=== PATIENT | female | born 1965 | race Caucasian/White ===

== ENCOUNTER → 2019-04-04 12:09 | Outpatient (CLI) | payer BC, SELFPAY ==
[2019-03-16 11:18] VITALS: BMI 25.3
== END ==
PROVIDERS: Family Provider Family Medicine; PCP Family Medicine; Referring Provider Internal Medicine Cardiovascular Disease; Visit Provider Internal Medicine Cardiovascular Disease
DX: R07.9 Chest pain, unspecified (principal)
CPT/HCPCS: 93017; 93350

== ENCOUNTER → 2019-12-14 | Outpatient (CLI) | payer BC, SELFPAY ==
[2019-12-14 12:37] VITALS: BMI 25.3
[2019-12-19 20:30] LABS: HPV APTIMA, High Risk Negative (Negative)
== END | disposition home or self-care (01) ==
LOC: LABSPEC 15:30
PROVIDERS: PCP Family Medicine; Referring Provider Nurse Practitioner Women's Health; Visit Provider Nurse Practitioner Women's Health
DX: Z12.4 Encounter for screening for malignant neoplasm of cervix (principal)
CPT/HCPCS: 87624; 88175; G0145

== ENCOUNTER → 2019-12-20 08:30 | Outpatient (CLI) | payer BC, SELFPAY ==
[2019-12-14 12:37] VITALS: BMI 25.3
--- NOTE | 2019-12-20 08:31 | BI_ITS ---
MAMMOGRAPHY - BILATERAL SCREENING REASON FOR EXAM: Female, 54 years old. Routine annual screening examination. PERTINENT HISTORY: Grandmother with breast cancer. TECHNIQUE: Digital bilateral breast shakeel (3D mammographic acquisition) in the CC and MLO projections. 2-D mediolateral oblique (MLO) and craniocaudad (CC) views of both breasts were obtained. CAD: Full Field Digital Mammography with Computer Added Detection was performed. COMPARISON: Comparison is made with prior operative examination dated September 20, 2018. FINDINGS: Breast Composition: There are scattered areas of fibroglandular density. There are no dominant masses or suspicious calcifications. Stable small benign-appearing bilateral axillary lymph nodes. No other significant abnormalities are identified. There has been no significant change since the prior study. BI/SCREEN MAMM (CAD) W/SHAKEEL BILAT IMPRESSION: Stable bilateral screening mammogram. Yearly follow-up mammogram recommended. (A) ASSESSMENT CATEGORY: BIRADS Category 2: Benign. A letter regarding these results will be sent to the patient by the facility within 30 days. Approximately 10% of breast cancers are not detected by mammography. A normal mammogram should not delay biopsy of a clinically suspicious abnormality. [id number] Electronically Signed: Jorge Hood, at 10:03 EST , Service support ,
== END ==
PROVIDERS: PCP Family Medicine; Referring Provider Nurse Practitioner Women's Health; Visit Provider Nurse Practitioner Women's Health
DX: Z12.31 Encounter for screening mammogram for malignant neoplasm of breast (principal)
CPT/HCPCS: 77063; 77067

== ENCOUNTER → 2022-02-17 | Outpatient (CLI) | payer BC, SELFPAY ==
[2022-02-17 12:19] LABS: Absolute Lymphocyte Count 2.97 X10^3/uL (0.83-4.51); Absolute Neutrophil Count 2.6 X10^3/uL (2.0-7.7); Basophil# 0.06 X10^3/uL; Basophil% 0.9 % (0-1); Eosinophil# 0.18 X10^3/uL; Eosinophils% 2.8 % (0-5); Hematocrit 37.9 % (37-47); Hemoglobin 12.7 g/dL (12.0-15.0); Lymphocyte # 2.97 X10^3/ul (0.83-4.51); Lymphocyte % 45.7 % (19-41); Mean Corp Hgb Conc 33.5 g/dL (32-36); Mean Corpuscular Hgb 31.2 pg (27.0-32.0); Mean Corpuscular Volume 93.1 fL (81-99); Mean Platelet Vol. 9.4 fl (6.2-12.0); Monocyte# 0.67 X10^3/uL; Monocyte% 10.3 % (0-10); NRBC Flagged by Analyzer 0 % (0-5); Platelet Count 347 K/mm3 (150-450); RBC Distribution Width CV 12.6 % (11.6-14.6); RBC Distribution Width SD 43.4 fl (35.1-43.9); Red Blood Count 4.07 M/mm3 (4.2-5.4); White Blood Count 6.5 K/mm3 (4.4-11.0)
[2022-02-17 12:58] LABS: AST(SGOT) 18 U/L (15-37); Alanine Aminotransfer ALT/SGPT 28 U/L (13-56); Albumin, Serum 3.6 g/dL (3.2-5.0); Alkaline Phosphatase 91 U/L (45-117); Anion Gap 6 (5-15); BUN 15 mg/dL (7-18); BUN/Creat Ratio 20.9 RATIO (10-20); Calcium,Total 9.3 mg/dL (8.5-10.1); Chloride 110 mmol/L (98-107); Cholesterol 172 mg/dL (200); Creatinine, Serum 0.72 mg/dL (0.55-1.02); EST Glomerular Filtration Rate 89 mL/min (>60); Est Glom Filt Rate - Afr Amer 107 mL/min (>60); Globulin 3.6 g/dL (2.2-4.2); Glucose 125 mg/dL (74-106); High Density Lipoprotein 57 mg/dL; Potassium 4.5 mmol/L (3.5-5.1); Protein, Total 7.2 g/dL (6.4-8.2); Sodium Level 141 mmol/L (136-145); Triglycerides 83 mg/dL; Very Low Density Lipoprotein 17 mg/dL (5-40)
== END | disposition home or self-care (01) ==
LOC: BIMLAB 08:30
PROVIDERS: PCP Internal Medicine; Referring Provider Internal Medicine; Visit Provider Internal Medicine
DX: Z00.00 Encounter for general adult medical examination without abnormal findings (principal)
CPT/HCPCS: 36415; 80053; 80061; 85025

== ENCOUNTER → 2022-02-26 | Outpatient (CLI) | payer BC, SELFPAY ==
--- NOTE | 2022-02-26 08:36 | BI_ITS ---
MAMMOGRAPHY - BILATERAL SCREENING REASON FOR EXAM: Female, 56 years old. Routine annual screening examination. PERTINENT HISTORY: Grandmother with breast cancer. TECHNIQUE: Digital bilateral breast shakeel (3D mammographic acquisition) in the CC and MLO projections. 2-D mediolateral oblique (MLO) and craniocaudad (CC) views of both breasts were obtained. CAD: Full Field Digital Mammography with Computer Added Detection was performed. COMPARISON: Comparison is made with prior study dated 12/20/2019. FINDINGS: Breast Composition: There are scattered areas of fibroglandular density. There are no dominant masses or suspicious calcifications. No other significant abnormalities are identified. There has been no significant change since the prior study. BI/SCRN MAMM (CAD)W/SHAKEEL BILAT IMPRESSION: Stable bilateral screening mammogram. Yearly follow-up mammogram recommended. (A) ASSESSMENT CATEGORY: BIRADS Category 1: Negative. A letter regarding these results will be sent to the patient by the facility within 30 days. Approximately 10% of breast cancers are not detected by mammography. A normal mammogram should not delay biopsy of a clinically suspicious abnormality. [id number] Electronically Signed: Jorge Hood MD at 9:27 EDT ,
== END | disposition home or self-care (01) ==
LOC: OPBI 08:35
PROVIDERS: PCP Internal Medicine; Visit Provider Internal Medicine
DX: Z12.31 Encounter for screening mammogram for malignant neoplasm of breast (principal); Z80.3 Family history of malignant neoplasm of breast
CPT/HCPCS: 77063; 77067

== ENCOUNTER → 2023-04-06 | Outpatient (CLI) | payer BC, SELFPAY ==
[2023-04-06 12:46] LABS: Absolute Lymphocyte Count 3.05 X10^3/uL (0.83-4.51); Absolute Neutrophil Count 2.4 X10^3/uL (2.0-7.7); Basophil# 0.06 X10^3/uL; Eosinophil# 0.13 X10^3/uL; Eosinophils% 2.1 % (0-5); Hematocrit 39.2 % (37-47); Hemoglobin 13.2 g/dL (12.0-15.0); Lymphocyte # 3.05 X10^3/ul (0.83-4.51); Lymphocyte % 48.9 % (19-41); Mean Corp Hgb Conc 33.7 g/dL (32-36); Mean Corpuscular Hgb 31.8 pg (27.0-32.0); Mean Corpuscular Volume 94.5 fL (81-99); Mean Platelet Vol. 9.2 fl (6.2-12.0); Monocyte# 0.57 X10^3/uL; Monocyte% 9.1 % (0-10); NRBC Flagged by Analyzer 0 % (0-5); Neutrophil # 2.42 X10^3/uL (2.7-7.7); Neutrophil % 38.7 % (47-70); Platelet Count 353 K/mm3 (150-450); RBC Distribution Width CV 12.1 % (11.6-14.6); Red Blood Count 4.15 M/mm3 (4.2-5.4); White Blood Count 6.2 K/mm3 (4.4-11.0)
[2023-04-06 12:55] LABS: ALB/GLOB Ratio 0.9 RATIO (0.9-2.4); AST(SGOT) 15 U/L (15-37); Alanine Aminotransfer ALT/SGPT 24 U/L (13-56); Albumin, Serum 3.6 g/dL (3.2-5.0); Alkaline Phosphatase 87 U/L (45-117); Anion Gap 5 (5-15); BUN 17 mg/dL (7-18); BUN/Creat Ratio 21.8 RATIO (10-20); Calcium,Total 9.7 mg/dL (8.5-10.1); Chloride 109 mmol/L (98-107); Cholesterol 197 mg/dL (200); Creatinine, Serum 0.78 mg/dL (0.55-1.02); EST Glomerular Filtration Rate 81 mL/min (>60); Est Glom Filt Rate - Afr Amer 98 mL/min (>60); Glucose 129 mg/dL (74-106); High Density Lipoprotein 67 mg/dL; Potassium 4.7 mmol/L (3.5-5.1); Protein, Total 7.6 g/dL (6.4-8.2); Sodium Level 141 mmol/L (136-145); Triglycerides 116 mg/dL; Very Low Density Lipoprotein 23 mg/dL (5-40)
[2023-04-06 14:02] LABS: Hemoglobin A1c 6.3 % (3.8-5.6)
== END | disposition home or self-care (01) ==
LOC: BIMLAB 09:48
PROVIDERS: PCP Internal Medicine; Referring Provider Internal Medicine; Visit Provider Internal Medicine
DX: E11.9 Type 2 diabetes mellitus without complications (principal)
CPT/HCPCS: 36415; 80053; 80061; 83036; 85025

== ENCOUNTER → 2023-04-27 | Outpatient (CLI) | payer BC, SELFPAY ==
--- NOTE | 2023-04-27 08:06 | BI_ITS ---
MAMMOGRAPHY - BILATERAL SCREENING REASON FOR EXAM: Female, 57 years old. Routine annual screening examination. PERTINENT HISTORY: Grandmother with breast cancer. TECHNIQUE: Digital bilateral breast shakeel (3D mammographic acquisition) in the CC and MLO projections. 2-D mediolateral oblique (MLO) and craniocaudad (CC) views of both breasts were obtained. CAD: Full Field Digital Mammography with Computer Added Detection was performed. COMPARISON: Comparison is made with prior study dated February 26, 2022 and December 20, 2019. FINDINGS: Breast Composition: There are scattered areas of fibroglandular density. There are no dominant masses or suspicious calcifications. No other significant abnormalities are identified. There has been no significant change since the prior study. BI/SCRN MAMM (CAD)W/SHAKEEL BILAT IMPRESSION: Stable bilateral screening mammogram. Yearly follow-up mammogram recommended. (A) ASSESSMENT CATEGORY: BIRADS Category 1: Negative. A letter regarding these results will be sent to the patient by the facility within 30 days. Approximately 10% of breast cancers are not detected by mammography. A normal mammogram should not delay biopsy of a clinically suspicious abnormality. [id number] Electronically Signed: Jorge Hood MD at 9:35 EDT ,
== END | disposition home or self-care (01) ==
LOC: OPBI 08:04
PROVIDERS: PCP Internal Medicine; Referring Provider Internal Medicine; Visit Provider Internal Medicine
DX: Z12.31 Encounter for screening mammogram for malignant neoplasm of breast (principal); Z80.3 Family history of malignant neoplasm of breast
CPT/HCPCS: 77063; 77067

== ENCOUNTER → 2024-05-02 | Outpatient (CLI) | payer BC, SELFPAY ==
--- NOTE | 2024-05-02 14:49 | BI_ITS ---
MAMMOGRAPHY - BILATERAL SCREENING REASON FOR EXAM: Female, 58 years old. Routine annual screening examination. PERTINENT HISTORY: Grandmother with breast cancer. TECHNIQUE: Digital bilateral breast shakeel (3D mammographic acquisition) in the CC and MLO projections. 2-D mediolateral oblique (MLO) and craniocaudad (CC) views of both breasts were obtained. CAD: Full Field Digital Mammography with Computer Added Detection was performed. COMPARISON: Comparison is made with prior study dated April 27, 2023 and February 26, 2022. FINDINGS: Breast Composition: There are scattered areas of fibroglandular density. There are no dominant masses or suspicious calcifications. No other significant abnormalities are identified. There has been no significant change since the prior study. BI/SCRN MAMM (CAD)W/SHAKEEL BILAT IMPRESSION: Stable bilateral screening mammogram. Yearly follow-up mammogram recommended. (A) ASSESSMENT CATEGORY: BIRADS Category 1: Negative. A letter regarding these results will be sent to the patient by the facility within 30 days. Approximately 10% of breast cancers are not detected by mammography. A normal mammogram should not delay biopsy of a clinically suspicious abnormality. [id number] Electronically Signed: Jorge Hood MD at 15:48 EDT ,
== END | disposition home or self-care (01) ==
LOC: OPBI 14:49
PROVIDERS: PCP Internal Medicine; Referring Provider Internal Medicine; Visit Provider Internal Medicine
DX: Z12.31 Encounter for screening mammogram for malignant neoplasm of breast (principal)
CPT/HCPCS: 77063; 77067

== ENCOUNTER → 2024-08-15 | Outpatient (CLI) | payer BC, SELFPAY ==
[2024-08-15 12:19] LABS: Absolute Lymphocyte Count 3.07 X10^3/uL (0.83-4.51); Absolute Neutrophil Count 3.6 X10^3/uL (2.0-7.7); Basophil# 0.07 X10^3/uL; Basophil% 0.9 % (0-1); Eosinophil# 0.32 X10^3/uL; Eosinophils% 4.1 % (0-5); Hematocrit 38.1 % (37-47); Hemoglobin 12.8 g/dL (12.0-15.0); Lymphocyte # 3.07 X10^3/ul (0.83-4.51); Lymphocyte % 39.7 % (19-41); Mean Corp Hgb Conc 33.6 g/dL (32-36); Mean Corpuscular Hgb 31.1 pg (27.0-32.0); Mean Corpuscular Volume 92.7 fL (81-99); Mean Platelet Vol. 8.9 fl (6.2-12.0); Monocyte# 0.68 X10^3/uL; Monocyte% 8.8 % (0-10); NRBC Flagged by Analyzer 0 % (0-5); Neutrophil # 3.59 X10^3/uL (2.7-7.7); Neutrophil % 46.4 % (47-70); Platelet Count 349 K/mm3 (150-450); RBC Distribution Width SD 44.1 fl (35.1-43.9); Red Blood Count 4.11 M/mm3 (4.2-5.4); White Blood Count 7.7 K/mm3 (4.4-11.0)
[2024-08-15 12:56] LABS: ALB/GLOB Ratio 0.9 RATIO (0.9-2.4); AST(SGOT) 15 U/L (15-37); Alanine Aminotransfer ALT/SGPT 21 U/L (13-56); Albumin, Serum 3.5 g/dL (3.2-5.0); Alkaline Phosphatase 90 U/L (45-117); Anion Gap 2 (5-15); BUN 13 mg/dL (7-18); BUN/Creat Ratio 18.7 RATIO (10-20); Calcium,Total 9.2 mg/dL (8.5-10.1); Chloride 108 mmol/L (98-107); Cholesterol 195 mg/dL (200); EST Glomerular Filtration Rate 91 mL/min (>60); Est Glom Filt Rate - Afr Amer 110 mL/min (>60); Globulin 3.8 g/dL (2.2-4.2); Glucose 125 mg/dL (74-106); High Density Lipoprotein 69 mg/dL; Protein, Total 7.3 g/dL (6.4-8.2); Sodium Level 139 mmol/L (136-145); Triglycerides 200 mg/dL; Very Low Density Lipoprotein 40 mg/dL (5-40)
== END | disposition home or self-care (01) ==
LOC: BIMLAB 10:00
PROVIDERS: PCP Internal Medicine; Referring Provider Internal Medicine; Visit Provider Internal Medicine
DX: Z00.00 Encounter for general adult medical examination without abnormal findings (principal)
CPT/HCPCS: 36415; 80053; 80061; 85025

== ENCOUNTER → 2025-05-09 | Outpatient (CLI) | payer BC, SELFPAY ==
--- NOTE | 2025-05-09 07:00 | BI_ITS ---
EXAM: SCRN MAMM (CAD)W/SHAKEEL BILAT DATE: 05/09/2025 CLINICAL HISTORY: F, Age 59 y/o , BREAST CANCER SCREENING TECHNIQUE: SCRN MAMM (CAD)W/SHAKEEL BILAT COMPARISON: Prior exam(s) were compared FINDINGS: TISSUE DENSITY: The breasts are heterogeneously dense, which may obscure small masses. Bilateral Breast Mammographic Findings: No suspicious masses, calcifications or other abnormalities are identified. BI/SCRN MAMM (CAD)W/SHAKEEL BILAT IMPRESSION: No mammographic evidence of malignancy in either breast OVERALL FINAL ASSESSMENT BI-RADS 1: NEGATIVE. RECOMMENDATION: Routine annual follow-up in 1 Year A letter with findings and recommendations will be mailed to the patient. Reading Location: [id number]
--- OUTSIDE RECORDS SUMMARY | 2025-05-09 07:01 | XMS RPT_ITS | CCD ---
Author Organization [facility] Care Team Providers Care Target Developer Name Role Phone Love Vee Attending Provider Unavailable Dr. Bernadine Vega Attending Provider [id number] Gary, Dr. Colindres Primary Care Provider [phone] Dr. Bernadine Vega Attending Provider [id number] Dr. Bernadine Vega Referring Provider [id number] Oleghe, Efewongbe Primary Care Unavailable Oleghe, Efewongbe Referring Unavailable Oleghe, Efewongbe Attending Unavailable Oleghe, Efewongbe Referring Unavailable Oleghe, Efewongbe Attending Unavailable Oleghe, Efewongbe Primary Care Unavailable Oleghe, Efewongbe Primary Care Unavailable Oleghe, Efewongbe Referring Unavailable Oleghe, Efewongbe Attending Unavailable Oleghe, Efewongbe Primary Care Unavailable Oleghe, Efewongbe Referring Unavailable Oleghe, Efewongbe Attending Unavailable Oleghe, Efewongbe Referring Unavailable Oleghe, Efewongbe Attending Unavailable Oleghe, Efewongbe Primary Care Unavailable Medications Current Medications Medication Drug Class(es) Dates Sig (Normalized) Sig (Original) acetaminophen 325 mg oral tablet (2 sources) Start: 03-10-2019 take 650 mg by mouth every six hours Acetaminophen Active 650 MG PO EVERY 6 HOURS March 10, 2019 11:43am Capsicum extract (2 sources) Start: 02-17-2022 Capsicum (Cayenne) Active MG PO February 17, 2022 8:08am Start: 02-17-2022 Capsicum (Caye nne) Active MG PO February 17, 2022 12:00am chrome mate (2 sources) Start: 02-17-2022 chrome mate Ac tive PO February 17, 2022 8:09am Start: 02-17-2022 End: 06-27-2022 chrome mate Discontinued PO February 17, 2022 12:00am June 27, 2022 9:03am cinnamon bark 500 mg oral capsule (2 sources) Start: 03-16-2019 take 1 capsule by mouth once daily Cinnamon Bark (Cinnamon) 500 mg capsule Active 500 MG PO DAILY March 16, 2019 11:21am Cranberry (2 sources) Non-Standardized Food Allergenic Extract, Non-Standardized Plant Allergenic Extract Start: 12-14-2019 take 400 mg by mouth once daily Cranberry Active 400 MG PO DAILY December 14, 2019 1:33pm administer with a meal Start: 12-14-2019 take 400 mg by mouth once ghulam y Cranberry Active 400 MG PO DAILY December 14, 2019 1:00am administer with a meal Dandelion root extract (2 sources) Start: 02-17-2022 Dandelion Root Active MG PO February 17, 2022 8:08am Start: 02-17-2022 End: 06-27-2022 Dandelion Root Discontinued MG PO February 17, 2022 12:00am June 27, 2022 9:03am Fenugreek Seed Extract (2 sources) Start: 02-17-2022 Fenugreek Seed Extract Active MG PO February 17, 2022 8:08am Start: 02-17-2022 End: 06-27-2022 Fenugreek Seed Extract Disco ntinued MG PO February 17, 2022 12:00am June 27, 2022 9:03am Garlic (2 sources) Non-Standardized Food Allergenic Extract Start: 02-17-2022 take 300 mg by mouth once daily Garlic Active 300 MG PO DAILY February 17, 2022 8:10am Start: 02-17-2022 take 300 mg by mouth once ghulam y Garlic Active 300 MG PO DAILY February 17, 2022 12:00am Laura Root-Pyridoxine Hcl(B 6) (2 sources) Start: 03-16-2019 Laura Root-Py ridoxine Hcl(B6) Active CAP PO March 16, 2019 11:21am Start: 03-16-2019 Laura Root-Py ridoxine Hcl(B6) Active CAP PO March 16, 2019 12:00am ibuprofen 200 mg oral tablet (2 sources) Nonsteroidal Anti-inflammatory Drug Start: 03-10-2019 take 400 mg by mouth every six hours Ibuprofen Active 400 MG PO EVERY 6 HOURS March 10, 2019 11:43am Iodine (Kelp) (2 sources) Start: 02-17-2022 Iodine (Kelp) (Kelp) 0.15 mg tablet Active MCG PO February 17, 2022 8:09am Start: 02-17-2022 Iodine (Kelp) (Kelp) 0.15 mg tablet Active MCG PO February 17, 2022 12:00am magnesium oxide 500 mg oral capsule (2 sources) Start: 12-14-2019 take 500 mg by mouth once daily Magnesium Oxide Active 500 MG PO DAILY December 14, 2019 1:32pm mecobalamin 1 mg chewable tablet (2 sources) Start: 12-14-2019 Mecobalamin (V itamin B12) Active MCG PO December 14, 2019 1:33pm 24 hr metFORMIN hydrochloride 500 mg extended release oral tablet (3 sources) Biguanide Start: 10-09-2022 take 500 mg by mouth once daily Metformin Active 500 MG PO DAILY October 09, 2022 6:34pm Start: 02-14-2022 End: 10-09-2022 take 500 mg by mouth once daily Metformin Active 500 M G PO DAILY February 14, 2022 8:55am red yeast rice 600 mg oral capsule (1 source) Start: 06-27-2022 take 600 mg by mouth once daily Red Yeast Rice Active 600 MG PO DAILY June 27, 2022 12:00am give with meal/snack Ahuouta-Ssnj-Lfqvc-Ore g-Capryl (2 sources) Start: 02-17-2022 Bwzqdws-Pxxw-W live-Oreg- Capryl Active CAP PO February 17, 2022 8:09am Start: 02-17-2022 Ptrbdqd-Rtbl-G ecst-Vpja-Dxqrdd Active CAP PO February 17, 2022 12:00am zinc acetate 50 mg oral capsule (2 sources) Start: 12-14-2019 take 1 capsule by mouth once daily zinc acetate 50 mg (zinc) capsule Active 50 MG PO DAILY December 14, 2019 1:33pm swallow whole; do not chew/break/dissolve/open Completed/Discontinued Medications Medication Drug Class(es) Dates Sig (Normalized) Sig (Original) acetaminophen 325 mg / oxyCODONE hydrochloride 5 mg oral tablet (2 sources) Opioid Agonist Start: 06-18-2017 End: 03-10-2019 take 1 tablet by mouth every four hours as needed Oxycodone-Acetamin ophen Discontinued 1 - 2 TABLET PO EVERY 4 HOURS NEEDED June 18, 2017 5:19am March 10, 2019 11:42am cephalexin 500 mg oral capsule (2 sources) Cephalosporin Antibacterial Start: 06-18-2017 End: 03-10-2019 take 500 mg by mouth three times daily Cephalexin Discontinued 500 MG PO THREE TIMES A DAY June 18, 2017 5:26am March 10, 2019 11:42am glucosamine 500 ge-thxdmgjcp-fiaplc en comp 400 mg-D3 667 unit-C-Mn cap (2 sources) Start: 12-14-2019 End: 02-17-2022 glucosamine 500 wl-luohyqcey-jcgkz gen comp 400 mg-D3 667 unit-C-Mn cap Discontinued CAP PO December 14, 2019 1:33pm February 17, 2022 8:09am Start: 12-14-2019 End: 02-17-2022 glucosamine 500 mg-chondroit -collagen comp 400 mg-D3 667 unit-C-Mn cap Discontinued CAP PO December 14, 2019 1:00am February 17, 2022 8:09am Lactobacillus Combination No.8 (Adult Probiotic) 3 billion cell capsule (2 sources) Start: 12-14-2019 End: 02-17-2022 take 3 capsules by mouth once daily Lactobacillus Combination No.8 (Adult Probiotic) 3 billion cell capsule Discontinued 3000 MMU CELLS PO DAILY December 14, 2019 1:33pm February 17, 2022 8:09am administer with a meal Start: 12-14-2019 End: 02-17-2022 take 3 capsules by mouth once daily Lactobacillus Combination No.8 (Adult Probiotic) 3 billion cell capsule Discontinued 3000 MMU CELLS PO DAILY December 14, 2019 1:00am February 17, 2022 8:09am administer with a meal metroNIDAZOLE 500 mg oral tablet (2 sources) Nitroimidazole Antimicrobial Start: 06-18-2017 End: 03-10-2019 take 500 mg by mouth twice daily Metronidazole Discontinued 500 MG PO TWICE A DAY June 18, 2017 5:26am March 10, 2019 11:42am Milk Thistle (4 sources) Start: 03-16-2019 End: 12-14-2019 take 500 mg by mouth once daily Milk Thistle Discontinued 500 MG PO DAILY March 16, 2019 11:21am December 14, 2019 1:32pm Start: 03-10-2019 End: 03-16-2019 take 500 mg by mouth once daily Milk Thistle Discontinued 500 MG PO DAILY March 10, 2019 11:44am March 16, 2019 11:21am Start: 03-10-2019 End: 03-16-2019 take 500 mg by mouth once daily Milk Thistle Discontinued 500 MG PO DAILY March 10, 2019 12:00am March 16, 2019 11:21am Problems Problem Classification Problem Date Documented Date Episodic/Chronic Calculus of urinary tract (2 sources) History of calculus of kidney; Translations: [Personal history of urinary calculi] 02-14-2022 Episodic Conduction disorders (2 sources) Incomplete right bundle branch block; Translations: [Unspecified right bundle-branch block] 03-14-2019 Chronic Diabetes mellitus without complication (3 sources) Type 2 diabetes mellitus; Translations: [Type 2 diabetes mellitus without complications] Onset: 02-15-2025 04-08-2023 Chronic Disorders of lipid metabolism (3 sources) Hyperlipidemia; Translations: [Hyperlipidemia, unspecified] 04-08-2023 Chronic Menopausal disorders (2 sources) Atrophic vaginitis; Translations: [Postmenopausal atrophic vaginitis] 12-14-2019 Chronic Osteoarthritis (2 sources) Arthritis; Translations: [Unspecified osteoarthritis, unspecified site] 02-14-2022 Chronic Other ear and sense organ disorders (1 source) Impacted cerumen; Translations: [Impacted cerumen, unspecified ear] 04-08-2023 Episodic Other ear and sense organ disorders (1 source) Impacted cerumen, unspecified ear; Translations: [Impacted cerumen] 04-08-2023 Episodic Other nutritional; endocrine; and metabolic disorders (1 source) Obese class I; Translations: [Obesity, unspecified] 03-26-2022 Chronic Other screening for suspected conditions (not mental disorders or infectious disease) (3 sources) Electrocardiogram abnormal; Translations: [Abnormal electrocardiogram [ECG] [EKG]] Onset: 05-05-2025 03-14-2019 Episodic Residual codes; unclassified (1 source) Asymptomatic menopausal state; Translations: [Asymptomatic menopausal state] Onset: 05-05-2025 Episodic Syncope (2 sources) Syncope; Translations: [Syncope and collapse] 03-10-2019 Episodic Results Test Name Value Interpretation Reference Range Facility Internal Medicine Office Vis lottie 02-15-2025 Internal Medicine Office Visit [facility] [address] [place] [address] [place] [address] OFFICE VISIT Date of Service: 02/15/25 MR#: [id number] Acct: [id number] Name: RATNA URBANO Rep #: [id number] 1 : 1965 Provider: Dr. 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 Required: No Is patient in pain?: No Allergies No Known Allergies Allergy (Verified 02/15/25 09:46) Medications ???Medication ???Instructions ???Recorded ???Confirmed ???Type acetaminophen 325 mg tablet 650 mg PO Q6H PRN 03/10/19 5 History ibuprofen 200 mg tablet 400 mg PO Q6H PRN 03/10/19 5 History magnesium oxide 500 mg capsule 500 mg PO DAILY 12/14/19 02/15/25 History zinc acetate 50 mg (zinc) capsule 50 mg PO DAILY 12/14/19 02/15/25 History capsicum (cayenne) 447 mg capsule mg PO 02/17/22 02/15/25 History garlic 300 mg capsule 300 mg PO DAILY 02/17/22 02/15/25 History iodine (kelp) 0.15 mg tablet (Kelp) mcg PO 02/17/22 02/15/25 Histor y vitamin B complex (Vitamins B 1 cap PO DAILY 10/05/23 02/15/25 H istory Complex capsule) burbirine PO 02/05/24 02/15/25 History metformin 500 mg tablet,extended 500 mg PO BID 3 months #180 tabs 0 02/15/25 02/15/25 Rx release 24 hr PFSH Medical History Allergies Flu vaccine refused Hypertension Cerumen impaction Health care maintenance Obesity (BMI 30.0-34.9) Type 2 diabetes mellitus Preventative health care Arthritis Hyperlipemia History of kidney stones 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 Syncope and collapse (10/2013) Type 2 diabetes mellitus without complication Surgical History Hx of LASIK History of colonoscopy History of dilatation and curettage Family History Mother Cancer uterine colon skin Colon cancer Father Arthritis Hypertension Hyperlipemia Aunt Diabetes Social History Smoking Status: Never smoker alcohol intake: never substance use type: does not use caffeine: Yes what type of physical activity do you participate in: walking duration: 15-30 minutes/day seatbelt use: always do you feel safe at home: Yes additional social history: [employer] Patient stays at home HPI HPI Chief Complaint: Follow-up chronic conditions Details: RATNA URBANO, is a 59 F who presents to the office today for follow-up of her chronic conditions. No acute concerns at this time. At her last visit, her A1c was 7.3. Metformin was increased to twice daily and dietary/lifestyle modifications recommended. Has been more active overall. Taking metformin as prescribed and A1c today is at 6.7 down from 7.3. No concerning side effect or new concerns reported. Other chronic medical conditions are stable. ROS Const Constitutional: No body ache, chills, excessive sweating, fatigue, fever(s), frequent falls, headache(s), snoring, weakness, sleep problems or change in appetite Eyes Eyes: No blurry vision, change in vision, floaters, visual disturbances, eye pain or Light sensitivity ENT ENT: No abnormal hearing, ear or mastoid pain, tinnitus, balance problems, nosebleed/epistaxis, nasal congestion, headache(s), neck pain or sore throat Resp Respiratory: No cough, excessive phlegm production, pain on inspiration, shortness of breath, snoring or wheezing Cardio Cardiology: No chest pain at rest, chest pain with exertion, excessive sweating, shortness of breath, dyspnea on exertion, lightheadedness, orthopnea or palpitations Gastro GI: No abdominal pain, change in bowel habits, constipation, cramping, diarrhea, nausea/dyspepsia or vomiting Genitourinary-Female : No burning urination, painful urination, urinary incontinence, urinary frequency, abnormal vaginal bleeding or pelvic pain Musc Musculoskeletal: No abnormal gait, joint pain, back pain, limited range of motion, neck pain or numbness Skin Skin: No dry skin, redness, excessive hair growth, yellowing of the eye, lesions, itchy eyes, rash or wounds Neuro Neurology: No abnormal gait, abnormal hearing, behavioral changes, unsteady gait/balance, weakness, frequent falls, headache(s), memory loss, numbness or visual disturba (more content not included)... Normal [facility] Internal Medicine Office Vis iton 11-14-2024 Internal Medicine Office Visit [facility] [address] [place] [address] [place] [address] OFFICE VISIT Date of Service: 11/14/24 MR#: [id number] Acct: [id number] Name: RATNA URBANO Rep #: [id number] : 1965 Provider: Dr. 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 Required: No Accompanied by: Self Is patient in pain?: No Allergies No Known Allergies Allergy (Verified 11/14/24 09:09) Medications ???Medication ???Instructions ???Recorded ???Confirmed ???Type acetaminophen 325 mg tablet 650 mg PO Q6H PRN 03/10/19 11/14/24 History ibuprofen 200 mg tablet 400 mg PO Q6H PRN 03/10/19 11/14/24 History magnesium oxide 500 mg capsule 500 mg PO DAILY 12/14/19 11/14/24 History zinc acetate 50 mg (zinc) capsule 50 mg PO DAILY 12/14/19 11/14/24 History capsicum (cayenne) 447 mg capsule mg PO 02/17/22 11/14/24 History garlic 300 mg capsule 300 mg PO DAILY 02/17/22 11/14/24 History iodine (kelp) 0.15 mg tablet (Kelp) mcg PO 02/17/22 11/14/24 History vitamin B complex (Vitamins B 1 cap PO DAILY 10/05/23 11/14/24 History Complex capsule) burbirine PO 02/05/24 11/14/24 History metformin 500 mg tablet,extended 500 mg PO BID 3 months #180 tabs 11/14/24 11/14/24 Rx release 24 hr PFSH Medical History (Updated 11/14/24 @ 12:[address] 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 Syncope and collapse (10/2013) Type 2 diabetes mellitus without complication Surgical History Hx of LASIK History of colonoscopy History of dilatation and curettage Family History Mother Cancer uterine colon skin Colon cancer Father Arthritis Hypertension Hyperlipemia Aunt Diabetes Social History Smoking Status: Never smoker alcohol intake: never substance use type: does not use caffeine: Yes what type of physical activity do you participate in: walking duration: 15-30 minutes/day seatbelt use: always do you feel safe at home: Yes additional social history: [employer] Patient stays at home HPI HPI Chief Complaint: Follow-up chronic conditions Details: RATNA SLABAUGH, is a 59 F who presents to the office today for follow-up of her chronic conditions. No acute concerns at this time. History of diabetes mellitus type 2 and A1c today is at 7.3 up from her last visit. Currently on metformin which she states that she is taking consistently. She is open to medication changes. With the weather change, she states that she has noted a dry cough/irritation. Uses a wood-burning fireplace. Has a humidifier at home but states that it is quite small. No significant congestion, chills or fever. Symptoms have been ongoing since September. Other chronic conditions are stable. ROS Const Constitutional: No body ache, chills, excessive sweating, fatigue, fever(s), frequent falls, headache(s), snoring, weakness, weight change or change in appetite Eyes Eyes: No blurry vision, change in vision, bulging eyes, floaters, visual disturbances, eye pain or Light sensitivity ENT ENT: No abnormal hearing, ear or mastoid pain, tinnitus, balance problems, nosebleed/epistaxis, nasal congestion, headache(s), neck pain or sore throat Resp Respiratory: No cough, excessive phlegm production, pain on inspiration, shortness of breath, snoring or wheezing Cardio Cardiology: No chest pain at rest, chest pain with exertion, excessive sweating, dyspnea on exertion, lightheadedness, orthopnea or palpitations Gastro GI: No abdominal pain, change in bowel habits, constipation, cramping, diarrhea, nausea/dyspepsia or vomiting Genitourinary-Female : No burning urination, painful urination, urinary incontinence, urinary frequency, suprapubic fullness or side pain Musc Musculoskeletal: No abnormal gait, joint pain, back pain, limited range of motion, loss of height, muscle cramps, muscle weakness, neck pain or numbness Skin Skin: No dry skin, redness, excessive hair growth, yellowing of the eye, lesions, itchy eyes, rash or wounds Neuro Neurolog (more content not included)... Normal [facility] CBC W/Diff, Automatedon 10-2 Absolute Lymph 3.07 X10 3/uL Normal 0.83-4.51 [facility] Comment on above: Performed By: #### L 500.4100, L500.4050, L100.0100 #### [facility] [address] [place], [address] Absolute Neut 3.6 X10 3/uL Normal 2.0-7.7 [facility] Comment on above: Performed By: #### L 500.4100, L500.4050, L100.0100 #### [facility] [address] [place], [address] Basophils/100 WBC (Bld) 0.9 % Normal 0-1 [facility] Comment on above: Performed By: #### L 500.4100, L500.4050, L100.0100 #### [facility] [address] [place], [address] Eosinophils/100 WBC (Bld) 4.1 % Normal 0-5 [facility] Comment on above: Performed By: #### L 500.4100, L500.4050, L100.0100 #### [facility] [address] [place], [address] Erythrocyte distribution width (RBC) [Ratio] 13.0 % Normal 11.6-14.6 [facility] Comment on above: Performed By: #### L 500.4100, L500.4050, L100.0100 #### [facility] [address] [place], [address] Hematocrit (Bld) [Volume fraction] 38.1 % Normal 37-47 [facility] Comment on above: Performed By: #### L 500.4100, L500.4050, L100.0100 #### [facility] [address] [place], [address] Hemoglobin (Bld) [Mass/Vol] 12.8 g/dL Normal 12.0-15.0 [facility] Comment on above: Performed By: #### L 500.4100, L500.4050, L100.0100 #### [facility] [address] [place], [address] IG% 0.100 Normal 0.0-0.9 [facility] Comment on above: Result Comment: IG% - Immature Granulocytes (promyelocytes, myelocytes and metamyelocytes) > 1% indicates that a LEFT SHIFT is Present. Performed By: #### L 500.4100, L500.4050, L100.0100 #### [facility] [address] [place], [address] Lymphocytes/100 WBC (Bld) 39.7 % Normal 19-41 [facility] Comment on above: Performed By: #### L 500.4100, L500.4050, L100.0100 #### [facility] [address] [place], [address] MCH (RBC) [Entitic mass] 31.1 pg Normal 27.0-32.0 [facility] Comment on above: Performed By: #### L 500.4100, L500.4050, L100.0100 #### [facility] [address] [place], [address] MCHC (RBC) [Mass/Vol] 33.6 g/dL Normal 32-36 [facility] Comment on above: Performed By: #### L 500.4100, L500.4050, L100.0100 #### [facility] [address] [place], [address] MCV (RBC) [Entitic vol] 92.7 fL Normal 81-99 [facility] Comment on above: Performed By: #### L 500.4100, L500.4050, L100.0100 #### [facility] [address] [place], [address] Monocytes/100 WBC (Bld) 8.8 % Normal 0-10 [facility] Comment on above: Performed By: #### L 500.4100, L500.4050, L100.0100 #### [facility] [address] [place], [address] Neutrophils/100 WBC (Bld) 46.4 % Low 47-70 [facility] Comment on above: Performed By: #### L 500.4100, L500.4050, L100.0100 #### [facility] [address] [place], [address] Nucleated RBC (Bld) [#/Vol] 0 10*3/uL Normal 0-5 [facility] Comment on above: Performed By: #### L 500.4100, L500.4050, L100.0100 #### [facility] [address] [place], [address] Platelet mean volume (Bld) [Entitic vol] 8.9 fL Normal 6.2-12.0 [facility] Comment on above: Performed By: #### L 500.4100, L500.4050, L100.0100 #### [facility] [address] [place], [address] Platelets (Bld) [#/Vol] 349 10*3/uL Normal 150-450 [facility] Comment on above: Performed By: #### L 500.4100, L500.4050, L100.0100 #### [facility] [address] [place], [address] RBC (Bld) [#/Vol] 4.11 10*6/uL Low 4.2-5.4 [facility] Comment on above: Performed By: #### L 500.4100, L500.4050, L100.0100 #### [facility] [address] [place], [address] RDW SD 44.1 fl High 35.1-43.9 [facility] Comment on above: Performed By: #### L 500.4100, L500.4050, L100.0100 #### [facility] [address] [place], [address] WBC (Bld) [#/Vol] 7.7 10*3/uL Normal 4.4-11.0 [facility] Comment on above: Performed By: #### L 500.4100, L500.4050, L100.0100 #### [facility] [address] [place], [address] Comprehensive Metabolic [facility] 08-15-2024 Albumin [Mass/Vol] 3.5 g/dL Normal 3.2-5.0 [facility] Comment on above: Performed By: #### L 500.4100, L500.4050, L100.0100 #### [facility] [address] [place], [address] Albumin/Globulin [Mass ratio] 0.9 {ratio} Normal 0.9-2.4 [facility] Comment on above: Performed By: #### L 500.4100, L500.4050, L100.0100 #### [facility] [address] [place], [address] ALK P 90 U/L Normal 45-117 [facility] Comment on above: Performed By: #### L 500.4100, L500.4050, L100.0100 #### [facility] [address] [place], [address] ALT [Catalytic activity/Vol] 21 U/L Normal 13-56 [facility] Comment on above: Performed By: #### L 500.4100, L500.4050, L100.0100 #### [facility] [address] [place], [address] AST [Catalytic activity/Vol] 15 U/L Normal 15-37 [facility] Comment on above: Performed By: #### L 500.4100, L500.4050, L100.0100 #### [facility] [address] [place], [address] Bilirubin [Mass/Vol] 0.40 mg/dL Normal 0.20-1.00 [facility] Comment on above: Result Comment: For patients on eltrombopag therapy, use of Dimension [place] TBIL is not recommended. Performed By: #### L 500.4100, L500.4050, L100.0100 #### [facility] [address] [place], [address] BUN/CRE 18.7 RATIO Normal 10-20 [facility] Comment on above: Performed By: #### L 500.4100, L500.4050, L100.0100 #### [facility] [address] [place], [address] CA,Total 9.2 mg/dL Normal 8.5-10.1 [facility] Comment on above: Performed By: #### L 500.4100, L500.4050, L100.0100 #### [facility] [address] [place], [address] Chloride [Moles/Vol] 108 mmol/L High 98-107 [facility] Comment on above: Performed By: #### L 500.4100, L500.4050, L100.0100 #### [facility] [address] [place], [address] CO2 [Moles/Vol] 28.0 mmol/L Normal 21.0-32.0 [facility] Comment on above: Performed By: #### L 500.4100, L500.4050, L100.0100 #### [facility] [address] [place], [address] Creatinine [Mass/Vol] 0.70 mg/dL Normal 0.55-1.02 [facility] Comment on above: Result Comment: The validity of the calculated GFR GFRAA in patients over 70 years has not been determined. Clinical correlation is essential. Performed By: #### L 500.4100, L500.4050, L100.0100 #### [facility] [address] [place], [address] EST GFR - AA 110 mL/min Normal >60 [facility] Comment on above: Result Comment: Afri can [place]ron[place] GFR Calc Performed By: #### L 500.4100, L500.4050, L100.0100 #### [facility] [address] [place], [address] GAP 2 Low 5-15 [facility] Comment on above: Performed By: #### L 500.4100, L500.4050, L100.0100 #### [facility] [address] [place], [address] GFR/1.73 sq M.predicted among non-blacks MDRD (S/P/Bld) [Vol rate/Area] 91 mL/min/{1.73_m2} Normal >60 [facility] Comment on above: Result Comment: Non- GFR Calc Performed By: #### L 500.4100, L500.4050, L100.0100 #### [facility] [address] [place], [address] Globulin (S) [Mass/Vol] 3.8 g/dL Normal 2.2-4.2 [facility] Comment on above: Performed By: #### L 500.4100, L500.4050, L100.0100 #### [facility] [address] [place], [address] Glucose [Mass/Vol] 125 mg/dL High 74-106 [facility] Comment on above: Result Comment: Fast ing Glucose result from 100 to 125 mg/dL suggests IMPAIRED HOMEOSTASIS per A.D.A. criteria. Performed By: #### L 500.4100, L500.4050, L100.0100 #### [facility] [address] [place], [address] Potassium [Moles/Vol] 4.0 mmol/L Normal 3.5-5.1 [facility] Comment on above: Performed By: #### L 500.4100, L500.4050, L100.0100 #### [facility] [address] [place], [address] Sodium [Moles/Vol] 139 mmol/L Normal 136-145 [facility] Comment on above: Performed By: #### L 500.4100, L500.4050, L100.0100 #### [facility] [address] [place], [address] T PROT 7.3 g/dL Normal 6.4-8.2 [facility] Comment on above: Performed By: #### L 500.4100, L500.4050, L100.0100 #### [facility] [address] [place], [address] Urea nitrogen [Mass/Vol] 13 mg/dL Normal 7-18 [facility] Comment on above: Performed By: #### L 500.4100, L500.4050, L100.0100 #### [facility] [address] [place], [address] Internal Medicine Office Vis lottie 08-15-2024 Internal Medicine Office Visit [facility] [address] [place] [address] [place] [address] OFFICE VISIT Date of Service: 08/15/24 MR#: [id number] Acct: [id number] Name: RATNA URBANO Rep #: [id number] : 1965 Provider: Dr. 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 Is patient in pain?: No Allergies No Known Allergies Allergy (Verified 08/15/24 09:20) Medications ???Medication ???Instructions ???Recorded ???Confirmed ???Type acetaminophen 325 mg tablet 650 mg PO Q6H PRN 03/10/19 08/15/24 History ibuprofen 200 mg tablet 400 mg PO Q6H PRN 03/10/19 08/15/24 History magnesium oxide 500 mg capsule 500 mg PO DAILY 12/14/19 08/15/24 History zinc acetate 50 mg (zinc) capsule 50 mg PO DAILY 12/14/19 08/15/24 History capsicum (cayenne) 447 mg capsule mg PO 02/17/22 08/15/24 History garlic 300 mg capsule 300 mg PO DAILY 02/17/22 08/15/24 History iodine (kelp) 0.15 mg tablet (Kelp) mcg PO 02/17/22 08/15/24 History metformin 500 mg tablet,extended 500 mg PO DAILY #90 tabs 10/05/23 08/15/24 Rx release 24 hr vitamin B complex (Vitamins B 1 cap PO DAILY 10/05/23 08/15/24 History Complex capsule) burbirine PO 02/05/24 08/15/24 History PFSH Medical History (Updated 08/15/24 @ 13:[address] Bernadine Vega MD) Flu vaccine refused Hypertension Cerumen impaction Health care maintenance Obesity (BMI 30.0-34.9) Type 2 diabetes mellitus Preventative health care Arthritis Hyperlipemia History of kidney stones 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 Syncope and collapse (10/2013) Type 2 diabetes mellitus without complication Surgical History Hx of LASIK History of colonoscopy History of dilatation and curettage Family History Mother Cancer uterine colon skin Colon cancer Father Arthritis Hypertension Hyperlipemia Aunt Diabetes Social History Smoking Status: Never smoker alcohol intake: never substance use type: does not use caffeine: Yes what type of physical activity do you participate in: walking duration: 15-30 minutes/day seatbelt use: always do you feel safe at home: Yes additional social history: [place]- [place] Patient stays at home HPI HPI Chief Complaint: Follow-up chronic conditions Details: RATNA URBANO, is a 58 F who presents to the office today for Follow-up of her chronic conditions. No acute concerns at this time. History of diabetes mellitus type 2 currently on metformin. She states that she has been taking her medication as prescribed. Admits that she is not as compliant with her diet. A1c today is at 6.7 up from her last visit. Other chronic medical conditions are stable. ROS Const Constitutional: No body ache, chills, excessive sweating, fatigue, fever(s), frequent falls, headache(s), snoring, weakness, sleep problems or change in appetite Eyes Eyes: No blurry vision, change in vision, bulging eyes, floaters, visual disturbances, eye pain or Light sensitivity ENT ENT: No abnormal hearing, ear or mastoid pain, tinnitus, balance problems, nosebleed/epistaxis, nasal congestion, headache(s), neck pain or sore throat Resp Respiratory: No cough, excessive phlegm production, pain on inspiration, shortness of breath, snoring or wheezing Cardio Cardiology: No chest pain at rest, chest pain with exertion, excessive sweating, shortness of breath, dyspnea on exertion, lightheadedness, orthopnea or palpitations Gastro GI: No abdominal pain, change in bowel habits, constipation, cramping, diarrhea, nausea/dyspepsia or vomiting Genitourinary-Female : No burning urination, painful urination, urinary incontinence, urinary frequency, suprapubic fullness, side pain, abnormal vaginal bleeding or pelvic pain Musc Musculoskeletal: No abnormal gait, joint pain, back pain, limited range of motion, neck pain or numbness Skin Skin: No dry skin, redness, excessive hair growth, yellowing of the eye, lesions, itchy eyes, rash or wounds Neuro Neurology: No abnormal gait, abnormal hearing, behavioral changes, unsteady gait/balance, weakness, frequent falls, headache(s), memory loss, numbness or visual disturbances Psych Psychiatric: No anxiety, No behavioral carranza (more content not included)... Normal [facility] Lipid Profileon 08-15-2024 Cholesterol [Mass/Vol] 195 mg/dL Normal 200 [facility] Comment on above: Result Comment: <200 mg/dL Desirable 200-240 mg/dL Borderline >240 mg/dL High Risk Performed By: #### L 500.4100, L500.4050, L100.0100 #### [facility] [address] [place], [address] Cholesterol in HDL [Mass/Vol] 69 mg/dL Normal [facility] Comment on above: Result Comment: The drugs N-Acetylcysteine and Metamizole may falsely depress this assay. Reference Range HDL <40 mg/dL Low HDL Cholesterol HDL >or= 60 mg/dL High HDL Cholesterol Performed By: #### L 500.4100, L500.4050, L100.0100 #### [facility] [address] [place], [address] Cholesterol in LDL [Mass/Vol] 86 mg/dL Normal 0-130 [facility] Comment on above: Performed By: #### L 500.4100, L500.4050, L100.0100 #### [facility] [address] [place], [address] Cholesterol in VLDL [Mass/Vol] 40 mg/dL Normal 5-40 [facility] Comment on above: Performed By: #### L 500.4100, L500.4050, L100.0100 #### [facility] [address] [place], [address] Triglyceride [Mass/Vol] 200 mg/dL High [facility] Comment on above: Result Comment: The drugs N-Acetylcysteine and Metamizole may falsely depress this assay. Serum Triglycerides Reference Interval Normal <150 mg/dL Borderline high 150 - 199 mg/dL High 200 - 499 mg/dL Very High > or = 500 mg/dL Performed By: #### L 500.4100, L500.4050, L100.0100 #### [facility] [address] [place], [address] Absolute lymphocyte countOrd ered By: Dr. Vega on 04-06-2023 Lymphocytes Auto (Unsp spec) [#/Vol] 3.05 10*3/uL 0.83-4.51 [facility] Basophil percentageOrdered B y: Dr. Vega on 04-06-2023 Basophils/100 WBC (Bld) 1.0 % 0-1 [facility] Bilirubin [Mass/Vol] 0.30 mg/dL 0.20-1.00 [facility] Comment on above: For patients on eltr ombopag therapy, use of Dimension [place] TBIL is not recommended. Chloride [Moles/Vol] 109 mmol/L 98-107 [facility] Cholesterol [Mass/Vol] 197 mg/dL <200 [facility] Comment on above: <200 mg/dL Desirable 200-240 mg/dL Borderline >240 mg/dL High Risk Eosinophils/100 WBC (Bld) 2.1 % 0-5 [facility] Glucose [Mass/Vol] 129 mg/dL 74-106 [facility] Comment on above: Fasting Glucose resu lt greater than or equal to 126 mg/dL suggests DIABETES MELLITUS per A.D.A. criteria. Neutrophils (Bld) [#/Vol] 2.4 10*3/uL 2.0-7.7 [facility] Neutrophils/100 WBC (Bld) 38.7 % 47-70 [facility] Potassium [Moles/Vol] 4.7 mmol/L 3.5-5.1 [facility] Protein [Mass/Vol] 7.6 g/dL 6.4-8.2 [facility] Sodium [Moles/Vol] 141 mmol/L 136-145 [facility] Triglyceride [Mass/Vol] 116 mg/dL <199 [facility] Comment on above: The drugs N-Acetylcy steine and Metamizole may falsely depress this assay.Serum Triglycerides Reference Interval Normal <150 mg/dL Borderline high 150 - 199 mg/dL High 200 - 499 mg/dL Very High > or = 500 mg/dL WBC (Bld) [#/Vol] 6.2 10*3/uL 4.4-11.0 [facility] Blood erythrocytes count (nu mber/volume)Ordered By: Dr. Vega on 04-06-2023 RBC (Bld) [#/Vol] 4.15 10*6/uL 4.2-5.4 [facility] Blood hemoglobin measurement (mass/volume)Ordered By: Dr. Vega on 04-06-2023 Hemoglobin (Bld) [Mass/Vol] 13.2 g/dL 12.0-15.0 [facility] Blood lymphocytes/100 leukoc ytesOrdered By: Dr. Vega on 04-06-2023 Lymphocytes/100 WBC (Bld) 48.9 % 19-41 [facility] Blood monocytes/100 leukocyt esOrdered By: Dr. Vega on 04-06-2023 Monocytes/100 WBC (Bld) 9.1 % 0-10 [facility] Blood platelet mean volumeOr dered By: Dr. Vega on 04-06-2023 Platelet mean volume (Bld) [Entitic vol] 9.2 fL 6.2-12.0 [facility] Determination of erythrocyte mean corpuscular volume (MCV)Ordered By: Dr. Vega on 04-06-2023 MCV (RBC) [Entitic vol] 94.5 fL 81-99 [facility] Hematocrit Auto (Bld) [Volum e fraction]Ordered By: Dr. Vega on 04-06-2023 Hematocrit (Bld) [Volume fraction] 39.2 % 37-47 [facility] - Chemistry and C hemistry - challengeOrdered By: Dr. Vega on 04-06-2023 ALP [Catalytic activity/Vol] 87 U/L 45-117 [facility] ALT [Catalytic activity/Vol] 24 U/L 13-56 [facility] CO2 [Moles/Vol] 27.0 mmol/L 21.0-32.0 [facility] Globulin (S) [Mass/Vol] 4.0 g/dL 2.2-4.2 [facility] Urea nitrogen/Creatinine [Mass ratio] 21.8 mg/mg 10-20 [facility] - Hematology and Cell countsOrdered By: Dr. Vega on 04-06-2023 Erythrocyte distribution width (RBC) [Entitic vol] 42.0 fL 35.1-43.9 [facility] Erythrocyte distribution width (RBC) [Ratio] 12.1 % 11.6-14.6 [facility] Immature granulocytes/100 WBC (Bld) 0.200 % 0.0-0.9 [facility] Comment on above: IG% - Immature Granu locytes (promyelocytes, myelocytes and metamyelocytes) > 1% indicates that a LEFT SHIFT is Present. MCH (RBC) [Entitic mass] 31.8 pg 27.0-32.0 [facility] Nucleated RBC/100 WBC (Bld) [Ratio] 0 % 0-5 [facility] MCHC Auto (RBC) [Mass/Vol]Or dered By: Dr. Vega on 04-06-2023 MCHC (RBC) [Mass/Vol] 33.7 g/dL 32-36 [facility] No Panel InformationOrdered By: Dr. Vega on 04-06-2023 Estimated GFR (MDRD) Amer 98 mL/min >60 [facility] Comment on above: GFR Calc Estimated GFR (MDRD) Non-Af Amer 81 mL/min >60 [facility] Comment on above: Non- GFR Calc Platelets bldOrdered By: Dr. Vega on 04-06-2023 Platelets (Bld) [#/Vol] 353 10*3/uL 150-450 [facility] Serum or plasma albumin la nena urement (mass/volume)Ordered By: Dr. Vega on 04-06-2023 Albumin [Mass/Vol] 3.6 g/dL 3.2-5.0 [facility] Serum or plasma albumin/glob ulin mass ratioOrdered By: Dr. Vega on 04-06-2023 Albumin/Globulin [Mass ratio] 0.9 {ratio} 0.9-2.4 [facility] Serum or plasma calcium la nena urement (mass/volume)Ordered By: Dr. Vega on 04-06-2023 Calcium [Mass/Vol] 9.7 mg/dL 8.5-10.1 [facility] Serum or plasma cholesterol in HDL measurement (mass/volume)Ordered By: Dr. Vega on 04-06-2023 Cholesterol in HDL [Mass/Vol] 67 mg/dL >40 [facility] Comment on above: The drugs N-Acetylcy steine and Metamizole may falsely depress this assay. Reference Range HDL <40 mg/dL Low HDL Cholesterol HDL >or= 60 mg/dL High HDL Cholesterol Serum or plasma cholesterol in VLDL measurement (mass/volume)Ordered By: Dr. Vega on 04-06-2023 Cholesterol in VLDL [Mass/Vol] 23 mg/dL 5-40 [facility] Serum or plasma creatinine m easurement (mass/volume)Ordered By: Dr. Vega on 04-06-2023 Creatinine [Mass/Vol] 0.78 mg/dL 0.55-1.02 [facility] Comment on above: The validity of the calculated GFR & GFRAA in patients over 70 years has not been determined. Clinical correlation is essential. Serum or plasma low density lipoprotein (LDL) cholesterol measurement (mass/volume)Ordered By: Dr. Vega on 04-06-2023 Cholesterol in LDL [Mass/Vol] 107 mg/dL 0-130 [facility] Serum or plasma urea nitroge n measurement (mass/volume)Ordered By: Dr. Vega on 04-06-2023 Urea nitrogen [Mass/Vol] 17 mg/dL 7-18 [facility] Thin prep Papanicolaou smear with manual screeningOrdered By: Dr. Vega on 04-06-2023 Thin prep Papanicolaou smear with manual screening 15 U/L 15-37 [facility] Thin prep Papanicolaou smear with manual screening 5 5-15 [facility] Whole blood hemoglobin A1c/t otal hemoglobin ratio (mass fraction)Ordered By: Dr. Vega on 04-06-2023 HbA1c (Bld) [Mass fraction] 6.3 % 3.8-5.6 [facility] Comment on above: Normal < 5.7 % Predi abetic 5.7 - 6.4 % Diabetic >or= 6.5 % Please note range changes. Absolute lymphocyte counton 02-17-2022 Lymphocytes Auto (Unsp spec) [#/Vol] 2.97 10*3/uL 0.83-4.51 [facility] Work Phone: Basophil percentageon 2021 Basophils/100 WBC (Bld) 0.9 % 0-1 [facility] Work Phone: Bilirubin [Mass/Vol] 0.30 mg/dL 0.20-1.00 [facility] Work Phone: Comment on above: For patients on eltr ombopag therapy, use of Dimension [place] TBIL is not recommended. Chloride [Moles/Vol] 110 mmol/L 98-107 [facility] Work Phone: Cholesterol [Mass/Vol] 172 mg/dL <200 [facility] Work Phone: Comment on above: <200 mg/dL Desirable 200-240 mg/dL Borderline >240 mg/dL High Risk Eosinophils/100 WBC (Bld) 2.8 % 0-5 [facility] Work Phone: Glucose [Mass/Vol] 125 mg/dL 74-106 [facility] Work Phone: Comment on above: Fasting Glucose resu lt from 100 to 125 mg/dL suggests IMPAIRED HOMEOSTASIS per A.D.A. criteria. Neutrophils (Bld) [#/Vol] 2.6 10*3/uL 2.0-7.7 [facility] Work Phone: Neutrophils/100 WBC (Bld) 40.0 % 47-70 [facility] Work Phone: Potassium [Moles/Vol] 4.5 mmol/L 3.5-5.1 [facility] Work Phone: Protein [Mass/Vol] 7.2 g/dL 6.4-8.2 [facility] Work Phone: Sodium [Moles/Vol] 141 mmol/L 136-145 [facility] Work Phone: Triglyceride [Mass/Vol] 83 mg/dL [facility] Work Phone: Comment on above: The drugs N-Acetylcy steine and Metamizole may falsely depress this assay.Serum Triglycerides Reference Interval Normal <150 mg/dL Borderline high 150 - 199 mg/dL High 200 - 499 mg/dL Very High > or = 500 mg/dL WBC (Bld) [#/Vol] 6.5 10*3/uL 4.4-11.0 [facility] Work Phone: Blood erythrocytes count (nu mber/volume)on 02-17-2022 RBC (Bld) [#/Vol] 4.07 10*6/uL 4.2-5.4 [facility] Work Phone: Blood hemoglobin measurement (mass/volume)on 02-17-2022 Hemoglobin (Bld) [Mass/Vol] 12.7 g/dL 12.0-15.0 [facility] Work Phone: Blood lymphocytes/100 leukoc yteson 02-17-2022 Lymphocytes/100 WBC (Bld) 45.7 % 19-41 [facility] Work Phone: Blood monocytes/100 leukocyt eson 02-17-2022 Monocytes/100 WBC (Bld) 10.3 % 0-10 [facility] Work Phone: Blood platelet mean volumeon 02-17-2022 Platelet mean volume (Bld) [Entitic vol] 9.4 fL 6.2-12.0 [facility] Work Phone: Determination of erythrocyte mean corpuscular volume (MCV)on 02-17-2022 MCV (RBC) [Entitic vol] 93.1 fL 81-99 [facility] Work Phone: Hematocrit Auto (Bld) [Volum e fraction]on 02-17-2022 Hematocrit (Bld) [Volume fraction] 37.9 % 37-47 [facility] Work Phone: Laboratory - Chemistry and C hemistry - challengeon 02-17-2022 ALP [Catalytic activity/Vol] 91 U/L 45-117 [facility] Work Phone: ALT [Catalytic activity/Vol] 28 U/L 13-56 [facility] Work Phone: CO2 [Moles/Vol] 25.0 mmol/L 21.0-32.0 [facility] Work Phone: Globulin (S) [Mass/Vol] 3.6 g/dL 2.2-4.2 [facility] Work Phone: Urea nitrogen/Creatinine [Mass ratio] 20.9 mg/mg 10-20 [facility] Work Phone: Laboratory - Hematology and Cell countson 02-17-2022 Erythrocyte distribution width (RBC) [Entitic vol] 43.4 fL 35.1-43.9 [facility] Work Phone: Erythrocyte distribution width (RBC) [Ratio] 12.6 % 11.6-14.6 [facility] Work Phone: Immature granulocytes/100 WBC (Bld) 0.300 % 0.0-0.9 [facility] Work Phone: Comment on above: IG% - Immature Granu locytes (promyelocytes, myelocytes and metamyelocytes) > 1% indicates that a LEFT SHIFT is Present. MCH (RBC) [Entitic mass] 31.2 pg 27.0-32.0 [facility] Work Phone: Nucleated RBC/100 WBC (Bld) [Ratio] 0 % 0-5 [facility] Work Phone: MCHC Auto (RBC) [Mass/Vol]on 02-17-2022 MCHC (RBC) [Mass/Vol] 33.5 g/dL 32-36 [facility] Work Phone: No Panel Informationon 02-17 Estimated GFR (MDRD) Amer 107 mL/min >60 [facility] Work Phone: Comment on above: GFR Calc Estimated GFR (MDRD) Non-Af Amer 89 mL/min >60 [facility] Work Phone: Comment on above: Non- GFR Calc Platelets bldon 02-17-2022 Platelets (Bld) [#/Vol] 347 10*3/uL 150-450 [facility] Work Phone: Serum or plasma albumin la nena urement (mass/volume)on 02-17-2022 Albumin [Mass/Vol] 3.6 g/dL 3.2-5.0 [facility] Work Phone: Serum or plasma albumin/glob ulin mass ratioon 02-17-2022 Albumin/Globulin [Mass ratio] 1.0 {ratio} 0.9-2.4 [facility] Work Phone: Serum or plasma calcium la nena urement (mass/volume)on 02-17-2022 Calcium [Mass/Vol] 9.3 mg/dL 8.5-10.1 [facility] Work Phone: Serum or plasma cholesterol in HDL measurement (mass/volume)on 02-17-2022 Cholesterol in HDL [Mass/Vol] 57 mg/dL [facility] Work Phone: Comment on above: The drugs N-Acetylcy steine and Metamizole may falsely depress this assay. Reference Range HDL <40 mg/dL Low HDL Cholesterol HDL >or= 60 mg/dL High HDL Cholesterol Serum or plasma cholesterol in VLDL measurement (mass/volume)on 02-17-2022 Cholesterol in VLDL [Mass/Vol] 17 mg/dL 5-40 [facility] Work Phone: Serum or plasma creatinine m easurement (mass/volume)on 02-17-2022 Creatinine [Mass/Vol] 0.72 mg/dL 0.55-1.02 [facility] Work Phone: Comment on above: The validity of the calculated GFR & GFRAA in patients over 70 years has not been determined. Clinical correlation is essential. Serum or plasma low density lipoprotein (LDL) cholesterol measurement (mass/volume)on 02-17-2022 Cholesterol in LDL [Mass/Vol] 98 mg/dL 0-130 [facility] Work Phone: Serum or plasma urea nitroge n measurement (mass/volume)on 02-17-2022 Urea nitrogen [Mass/Vol] 15 mg/dL 7-18 [facility] Work Phone: Thin prep Papanicolaou smear with manual screeningon 02-17-2022 Thin prep Papanicolaou smear with manual screening 18 U/L 15-37 [facility] Work Phone: Thin prep Papanicolaou smear with manual screening 6 5-15 [facility] Work Phone: .Auto Diffon 08-31-2020 Ammonia (P) [Mass/Vol] 0.70 10 3/mcL Normal 0.15-1.00 [facility] ([place]) Comment on above: Performed By: #### A 1C, TSH, LIPID, CMP #### [place] [address] #### CBC, ADIFF, ANEU, GFR #### [address] [address] Basophils (Bld) [#/Vol] 0.10 10 3/mcL Normal 0.00-0.19 [facility] ([place]) Comment on above: Performed By: #### A 1C, TSH, LIPID, CMP #### [place] [address] #### CBC, ADIFF, ANEU, GFR #### [address] [address] Basophils/100 WBC (Bld) 0.9 % Normal 0.0-2.5 [facility] ([place]) Comment on above: Performed By: #### A 1C, TSH, LIPID, CMP #### [place] [address] #### CBC, ADIFF, ANEU, GFR #### [address] [address] Eosinophils (Bld) [#/Vol] 0.20 10 3/mcL Normal 0.00-0.40 [facility] ([place]) Comment on above: Performed By: #### A 1C, TSH, LIPID, CMP #### [place] [address] #### CBC, ADIFF, ANEU, GFR #### [address] [place] [address] Eosinophils/100 WBC (Bld) 2.6 % Normal 0.0-7.0 [facility] ([place]) Comment on above: Performed By: #### A 1C, TSH, LIPID, CMP #### [place] [address] #### CBC, ADIFF, ANEU, GFR #### [address] [address] Lymphocytes (Bld) [#/Vol] 3.10 10 3/mcL Normal 0.77-3.85 [facility] ([place]) Comment on above: Performed By: #### A 1C, TSH, LIPID, CMP #### [place] [address] #### CBC, ADIFF, ANEU, GFR #### [address] [address] Lymphocytes/100 WBC (Bld) 39.3 % Normal 10.0-50.0 [facility] ([place]) Comment on above: Performed By: #### A 1C, TSH, LIPID, CMP #### [place] [address] #### CBC, ADIFF, ANEU, GFR #### [address] [address] Monocytes/100 WBC (Bld) 9.3 % Normal 1.7-13.0 [facility] ([place]) Comment on above: Performed By: #### A 1C, TSH, LIPID, CMP #### [place] [address] #### CBC, ADIFF, ANEU, GFR #### [address] [address] Neutrophils/100 WBC (Bld) 47.9 % Normal 37.0-80.0 [facility] ([place]) Comment on above: Performed By: #### A 1C, TSH, LIPID, CMP #### [place] [address] #### CBC, ADIFF, ANEU, GFR #### [address] [address] .GFRon 08-31-2020 GFR Non- 78 ml/min/1.73sqm Normal [facility] ([place]) Comment on above: Result Comment: GFR Population mean for , Non- Americans Ages 20-29 = 116 mL/min/1.73 sq.m. Ages 30-39 = 107 mL/min/1.73 sq.m. Ages 40-49 = 99 mL/min/1.73 sq.m. Ages 50-59 = 93 mL/min/1.73 sq.m. Ages 60-69 = 85 mL/min/1.73 sq.m. Ages 70+ = 75 mL/min/1.73 sq.m. Chronic Kidney Disease: Less than 60 mL/min/1.73 square meters End Stage Renal Disease: Less than 15 mL/min/1.73 square meters Performed By: #### A 1C, TSH, LIPID, CMP #### [place] [address] #### CBC, ADIFF, ANEU, GFR #### [address] [address] GFR 94 ml/min/1.73sqm Normal [facility] ([place]) Comment on above: Result Comment: GFR Population mean for , Non- Americans Ages 20-29 = 116 mL/min/1.73 sq.m. Ages 30-39 = 107 mL/min/1.73 sq.m. Ages 40-49 = 99 mL/min/1.73 sq.m. Ages 50-59 = 93 mL/min/1.73 sq.m. Ages 60-69 = 85 mL/min/1.73 sq.m. Ages 70+ = 75 mL/min/1.73 sq.m. Chronic Kidney Disease: Less than 60 mL/min/1.73 square meters End Stage Renal Disease: Less than 15 mL/min/1.73 square meters Performed By: #### A 1C, TSH, LIPID, CMP #### [place] [address] #### CBC, ADIFF, ANEU, GFR #### [address] [address] .NEUABSon 08-31-2020 Neutrophils (Bld) [#/Vol] 3.80 10 3/mcL Normal 2.85-6.16 [facility] ([place]) Comment on above: Performed By: #### A 1C, TSH, LIPID, CMP #### [place] [address] #### CBC, ADIFF, ANEU, GFR #### [place] [address] A1Con 08-31-2020 HbA1c (Bld) [Mass fraction] 6.3 % Normal 4.3-6.4 [facility] ([place]) Comment on above: Performed By: #### A 1C, TSH, LIPID, CMP #### [place] [address] #### CBC, ADIFF, ANEU, GFR #### [address] 08-31-2020 Erythrocyte distribution width (RBC) [Ratio] 13.0 % Normal 11.5-14.5 [facility] ([place]) Comment on above: Performed By: #### A 1C, TSH, LIPID, CMP #### [place] [address] #### CBC, ADIFF, ANEU, GFR #### [place] [address] Hematocrit (Bld) [Volume fraction] 38.9 % Normal 37.0-47.0 [facility] ([place]) Comment on above: Performed By: #### A 1C, TSH, LIPID, CMP #### [place] [address] #### CBC, ADIFF, ANEU, GFR #### [place] [address] Hemoglobin (Bld) [Mass/Vol] 13.8 G/dL Normal 12.0-16.0 [facility] ([place]) Comment on above: Performed By: #### A 1C, TSH, LIPID, CMP #### [place] [address] #### CBC, ADIFF, ANEU, GFR #### [address] [address] MCH (RBC) [Entitic mass] 33.0 pg High 27.0-31.2 [facility] ([place]) Comment on above: Performed By: #### A 1C, TSH, LIPID, CMP #### [place] [address] #### CBC, ADIFF, ANEU, GFR #### [address] [address] MCHC (RBC) [Mass/Vol] 35.4 G/dL Normal 33.0-37.0 [facility] ([place]) Comment on above: Performed By: #### A 1C, TSH, LIPID, CMP #### [place] [address] #### CBC, ADIFF, ANEU, GFR #### [address] [address] MCV (RBC) [Entitic vol] 93.2 fL Normal 80.0-94.0 [facility] ([place]) Comment on above: Performed By: #### A 1C, TSH, LIPID, CMP #### [place] [address] #### CBC, ADIFF, ANEU, GFR #### [address] [address] Platelet mean volume (Bld) [Entitic vol] 7.5 fL Normal 7.4-10.4 [facility] ([place]) Comment on above: Performed By: #### A 1C, TSH, LIPID, CMP #### [place] [address] #### CBC, ADIFF, ANEU, GFR #### [address] [address] Platelets (Bld) [#/Vol] 344 10 3/mcL Normal 130-400 [facility] ([place]) Comment on above: Performed By: #### A 1C, TSH, LIPID, CMP #### [place] [address] #### CBC, ADIFF, ANEU, GFR #### [address] [address] RBC (Bld) [#/Vol] 4.17 10 6/mcL Low 4.20-5.40 [facility] ([place]) Comment on above: Performed By: #### A 1C, TSH, LIPID, CMP #### [place] [address] #### CBC, ADIFF, ANEU, GFR #### [address] [address] WBC (Bld) [#/Vol] 8.00 10 3/mcL Normal 4.60-10.80 [facility] ([place]) Comment on above: Performed By: #### A 1C, TSH, LIPID, CMP #### [place] [address] #### CBC, ADIFF, ANEU, GFR #### [address] [address] [facility] 08-31-2020 Albumin [Mass/Vol] 4.2 G/dL Normal 3.5-5.0 [facility] ([place]) Comment on above: Performed By: #### A 1C, TSH, LIPID, CMP #### [place] [address] #### CBC, ADIFF, ANEU, GFR #### [address] [address] Albumin/Globulin [Mass ratio] 1.2 {ratio} Normal 1.1-2.5 [facility] ([place]) Comment on above: Performed By: #### A 1C, TSH, LIPID, CMP #### [place] [address] #### CBC, ADIFF, ANEU, GFR #### [address] [address] ALP [Catalytic activity/Vol] 70 U/L Normal 40-135 [facility] ([place]) Comment on above: Performed By: #### A 1C, TSH, LIPID, CMP #### [place] [address] #### CBC, ADIFF, ANEU, GFR #### [address] [address] ALT [Catalytic activity/Vol] 34 U/L Normal 14-59 [facility] ([place]) Comment on above: Performed By: #### A 1C, TSH, LIPID, CMP #### [place] [address] #### CBC, ADIFF, ANEU, GFR #### [address] [address] AST [Catalytic activity/Vol] 25 U/L Normal 10-40 [facility] ([place] Comment on above: Performed By: #### A 1C, TSH, LIPID, CMP #### [place] [address] #### CBC, ADIFF, ANEU, GFR #### [address] [address] Bili Total 0.4 mg/dL Normal 0.2-1.0 [facility] ([place]) Comment on above: Result Comment: Use of this assay is not recommended for patients undergoing treatment with eltrombopag due to the potential for falsely elevated results. Performed By: #### A 1C, TSH, LIPID, CMP #### [place] [address] #### CBC, ADIFF, ANEU, GFR #### [address] [address] Calcium [Mass/Vol] 9.7 mg/dL Normal 8.4-10.2 [facility] ([place]) Comment on above: Performed By: #### A 1C, TSH, LIPID, CMP #### [place] [address] #### CBC, ADIFF, ANEU, GFR #### [address] [address] Chloride [Moles/Vol] 103 mmol/L Normal 98-107 [facility] ([place]) Comment on above: Performed By: #### A 1C, TSH, LIPID, CMP #### [place] [address] #### CBC, ADIFF, ANEU, GFR #### [address] [address] CO2 [Moles/Vol] 29 mmol/L Normal 22-29 [facility] ([place]) Comment on above: Performed By: #### A 1C, TSH, LIPID, CMP #### [place] [address] #### CBC, ADIFF, ANEU, GFR #### [address] [address] Creatinine [Mass/Vol] 0.77 mg/dL Normal 0.55-1.02 [facility] ([place]) Comment on above: Performed By: #### A 1C, TSH, LIPID, CMP #### [place] [address] #### CBC, ADIFF, ANEU, GFR #### [address] [address] Electrolyte Balance 9.0 mEq/L Normal [facility] ([place]) Comment on above: Performed By: #### A 1C, TSH, LIPID, CMP #### [place] [address] #### CBC, ADIFF, ANEU, GFR #### [address] [address] Globulin (S) [Mass/Vol] 3.4 G/dL Normal [facility] ([place]) Comment on above: Performed By: #### A 1C, TSH, LIPID, CMP #### [place] [address] #### CBC, ADIFF, ANEU, GFR #### [address] [address] Glucose [Mass/Vol] 89 mg/dL Normal 70-105 [facility] ([place]) Comment on above: Performed By: #### A 1C, TSH, LIPID, CMP #### [place] [address] #### CBC, ADIFF, ANEU, GFR #### [address] [address] Potassium [Moles/Vol] 4.6 mmol/L Normal 3.5-5.1 [facility] ([place]) Comment on above: Performed By: #### A 1C, TSH, LIPID, CMP #### [place] [address] #### CBC, ADIFF, ANEU, GFR #### [address] [address] Protein [Mass/Vol] 7.6 G/dL Normal 6.4-8.2 [facility] ([place]) Comment on above: Performed By: #### A 1C, TSH, LIPID, CMP #### [place] [address] #### CBC, ADIFF, ANEU, GFR #### [address] [address] Sodium [Moles/Vol] 141 mmol/L Normal 136-145 [facility] ([place]) Comment on above: Performed By: #### A 1C, TSH, LIPID, CMP #### [place] [address] #### CBC, ADIFF, ANEU, GFR #### [address] [address] Urea nitrogen [Mass/Vol] 12 mg/dL Normal 7-18 [facility] ([place]) Comment on above: Performed By: #### A 1C, TSH, LIPID, CMP #### [place] [address] #### CBC, ADIFF, ANEU, GFR #### [address] [address] Urea nitrogen/Creatinine [Mass ratio] 16 ratio Normal 7-27 [facility] ([place]) Comment on above: Performed By: #### A 1C, TSH, LIPID, CMP #### [place] [address] #### CBC, ADIFF, ANEU, GFR #### [address] [address] LIPIDon 08-31-2020 Cholesterol [Mass/Vol] 217 mg/dL High 0-200 [facility] ([place]) Comment on above: Result Comment: Chol esterol Reference Interval: Less than 200 Desirable 200-239 Borderline high risk 240 and above High risk Performed By: #### A 1C, TSH, LIPID, CMP #### [place] [address] #### CBC, ADIFF, ANEU, GFR #### [address] [address] Cholesterol in HDL [Mass/Vol] 73 mg/dL High 40-60 [facility] ([place]) Comment on above: Performed By: #### A 1C, TSH, LIPID, CMP #### [place] [address] #### CBC, ADIFF, ANEU, GFR #### [address] [address] Cholesterol in LDL [Mass/Vol] 127 mg/dL Normal 0-130 [facility] ([place]) Comment on above: Performed By: #### A 1C, TSH, LIPID, CMP #### [place] [address] #### CBC, ADIFF, ANEU, GFR #### [address] [address] Triglyceride [Mass/Vol] 84 mg/dL Normal 0-150 [facility] ([place]) Comment on above: Result Comment: Trig lyceride Reference Interval: Less than 150 Normal 150-199 Borderline high risk 200-499 High risk 500 or higher Very high risk Performed By: #### A 1C, TSH, LIPID, CMP #### [place] [address] #### CBC, ADIFF, ANEU, GFR #### [address] [address] MALBRon 08-31-2020 U Creatinine 11.9 mg/dL Normal [facility] ([place]) Comment on above: Performed By: #### M ALBR #### [address] [address] U Microalb <300 Normal [facility] ([place]) Comment on above: Performed By: #### M ALBR #### [place] [address] U Ratio Alb/Cre Unable to Calculate Normal 0.0-24.9 [facility] ([place]) Comment on above: Result Comment: Unab le to calculate this test result accurately. Results used to calculate this test are outside the reportable range. Performed By: #### M ALBR #### [place] [address] TSHon 08-31-2020 TSH Qn 1.55 mcIU/mL Normal 0.36-3.74 [facility] ([place]) Comment on above: Performed By: #### A 1C, TSH, LIPID, CMP #### [place] [address] #### CBC, ADIFF, ANEU, GFR #### [address] [address] CNOVon 06-29-2019 CNOV Office Visit (GENSWS) RATNA URBANO ([id number]) 1965 F Date Time Provider Department 06/29/19 2:20 PM LATISHA CLARKE During your visit today, we recorded the following information about you: Temperature Pulse Weight 98.5 degrees 74/minute 63.1 kg Latisha Clarke MD 07/01/2019 6:35 PM Signed Ratna Urbano 1965 REFERRING PHYSICIAN: Obie Sanchez DO CHIEF COMPLAINT: Consult (EGD) HPI: The patient is a 53 year old female presents for follow up of epigastric abdominal pain. She was referred back in December of this year for consideration of EGD for which she deferred. Her workup has been the following: US 01/17/19 - NORMAL SONOGRAPHIC APPEARANCE OF THE RIGHT UPPER QUADRANT NM HIDA scan 02/16/19 Gallbladder activity is visualized by 9 minutes, indicating cystic duct patency. ?Proximal small bowel activity is noted by 17 minutes, indicating common bile duct patency.There is activity in the gastric region suggesting duodenal gastric reflux. Gallbladder EF calculation is limited by motion She states that she always stands or sits with crossed arms. She states that she has tried to relax her arms to her sides and when she does this, she does not have the pain/symptoms. Denies nausea/emesis Denies abdominal bloating PAST MEDICAL HISTORY - Diabetes (HCC) - Kidney stone - Over weight PAST SURGICAL HISTORY Procedure Laterality Date - COLONOSCOPY 01/28/2016 - [facility] 1986 - [place] Current Outpatient Medications: MILK THISTLE ORAL Take 1 capsule by mouth once daily. FENUGREEK SEED EXTRACT ORAL Take 1 capsule by mouth once daily. BLACK COHOSH ORAL Take 1 tablet by mouth once daily. esomeprazole (NEXIUM) 20 mg capsule Take 20 mg by mouth once daily. [id number] NC ORAL Take 2 tablets by mouth once daily. cyanocobalamin, vitamin B-12, (VITAMIN B-12 ORAL) Take 1 tablet by mouth once daily. ALLERGIES: Patient has no known allergies. PERSONAL HISTORY: Social History Socioeconomic History Marital status: Smoking status: Never Smoker Smokeless tobacco: Never Used Substance and Sexual Activity Alcohol use: Never Drug use: Never FAMILY HISTORY - Cancer Mother uterine AND colon - Hyperlipidemia Father - Hypertension Father - Arthritis Father - No Known Problems Sister - Breast Cancer Maternal Grandmother - Hypertension Paternal Grandmother - No Known Problems Daughter - No Known Problems Daughter - No Known Problems Son - No Known Problems Son - No Known Problems Son REVIEW OF SYSTEMS: General: The patient NOTES fatigue, denies weight loss, denies weight gain, denies feeling hot, and NOTES feelings of cold. Eyes: The patient denies glaucoma, NOTES eye injury/surgery, wears glasses or contacts. Ear/Nose/Throat: The patient denies allergies, denies hayfever, denies ear infections, and denies bloody noses. Cardiovascular: The patient denies chest pain, denies heart disease, denies high blood pressure,denies cardiac stent, denies prior heart attack, denies irregular heart beat, denies high cholesterol, denies poor circulation, denies heart failure, other cardiac issues, NOTES claudication, NOTES cold feet, denies peripheral arterial stent. Respiratory: The patient denies tuberculosis, denies pneumonia, denies frequent cough, denies pulmonary embolism, denies shortness of breath, and denies coughing up blood. Gastrointestinal: The patient denies difficulty swallowing, NOTES acid reflux, denies ulcers, denies vomiting, denies jaundice/hepatitis, denies gallbladder problems, denies black or tarry stools, denies hemorrhoids, denies bleeding from rectum, denies diverticulitis, denies constipation, denies diarrhea, denies loss of stool control, and denies hernias. Kidney/Bladder: The patient NOTES kidney stones, denies urine infections, and denies bloody urine. Skin: The patient denies a history of skin cancer, denies bleeding/changing moles, and denies a history of skin rash. Neurologic: The patient denies a history of epilepsy/convulsions , denies headaches, denies head/spinal injuries, and denies stroke/TIA. Psychiatric: The patient denies psychiatric medications, denies depression, and denies voices, denies substance abuse. Endocrine: The patient denies thyroid disorders, NOTES diabetes, and denies hormonal problems. Hematologic: The patient denies a history of bruising, denies bleeding, and denies anemia, denies blood clots. Infections: The patient NOTES a history of measles and mumps, denies rheumatic fever, and denies sexually transmitted diseases. Musculoskeletal: The patient NOTES back pain/injury, denies back problems, denies sciatica, denies knee/foot trouble, NOTES arthritis, or denies gout. PHYSICAL EXAMINATION: General: The patient is 53 year old female, well nourished, well hydrated in no acute distress. The patient is oriented to time, place, and person. VITALS: Blood pressure 112/60, pulse 86, temperature 36.4 ?C (97.5 ?F), temperature source Temporal, resp. rate 16, height 155 cm (5' 1.02), weight 61.3 kg (135 lb 3.2 oz), SpO2 100 %. Body mass index is 25.53 kg/m?. Head ? Normocephalic. EOM intact with sclera clear and no icterus noted. Wearing glasses, Mouth with mucus membranes moist. Neck - supple with no jugular venous distention noted. Trachea is midline. Chest/breast ? prominent xiphoid process Lungs ? no labored breathing noted, such as retractions. No cough heard. Abdomen ? soft and benign Extremities ? no pitting edema noted. Skin ? normal skin integrity. Psych ? calm and appropriate IMPRESSION: epigastric abdominal pain PLAN: I have discussed the above with the patient. She has strong opinions as to the etiology of her abdominal pain and feels that with her relaxed position, she no longed has symptoms. She had questions about the HIDA scan reports and was concerned about the wording of activity in the gastric region suggesting duodenal gastric reflux and she was concerned about an abnormal connection between the stomach and the small intestine. I explained this to her. I have offered her further evaluation with EGD, based on her past complaints - she does not want this. She did not schedule for this in this patient encounter. I have offered her treatment with Carafate for bile gastritis - she will think about it. I have answered all questions to the patient?s satisfaction and the patient has no further questions. . Return to Clinic: The patient is instructed to follow-up with me per needed. Referring Provider: LATISHA CLARKE [[id number]] Allergies As of Date: 06/29/2019 (No Known Allergies) Date Reviewed: 06/29/2019 Reviewed by: Tony Gonzalez LPN - Fully Assessed Reason for Visit: Established Patient [175] Cmt: Need EGD Primary Visit Diagnosis:Epigastric abdominal pain [R10.13] Prescriptions as of 06/29/2019 Sig: MILK THISTLE ORAL Take 1 capsule by mouth once * FENUGREEK SEED EXTRACT ORAL Take 1 capsule by mouth once * BLACK COHOSH ORAL Take 1 tablet by mouth once d* ESOMEPRAZOLE MAGNESIUM 20 MG * Take 20 mg by mouth once ghulam* [id number] NC ORAL Take 2 tablets by mouth once * VITAMIN B-12 ORAL Take 1 tablet by mouth once d* Problem List As Of Date: 06/29/2019 (None) Encounter Status:Closed by MD LATISHA CLARKE on 07/01/19 Normal [facility] PROGRESSon 06-29-2019 PROGRESS HNO ID: [id number] Author: Latisha Clarke Service: ? Author Type: Physician Type: Progress Notes Filed: 07/01/2019 6:35 PM Note Text: Ratna Urbano 1965 REFERRING PHYSICIAN: Obie Sanchez DO CHIEF COMPLAINT: Consult (EGD) HPI: The patient is a 53 year old female presents for follow up of epigastric abdominal pain. She was referred back in December of this year for consideration of EGD for which she deferred. Her workup has been the following: US 01/17/19 - NORMAL SONOGRAPHIC APPEARANCE OF THE RIGHT UPPER QUADRANT NM HIDA scan 02/16/19 Gallbladder activity is visualized by 9 minutes, indicating cystic duct patency. ?Proximal small bowel activity is noted by 17 minutes, indicating common bile duct patency.There is activity in the gastric region suggesting duodenal gastric reflux. Gallbladder EF calculation is limited by motion She states that she always stands or sits with crossed arms. She states that she has tried to relax her arms to her sides and when she does this, she does not have the pain/symptoms. Denies nausea/emesis Denies abdominal bloating PAST MEDICAL HISTORY - Diabetes (HCC) - Kidney stone - Over weight PAST SURGICAL HISTORY Procedure Laterality Date - COLONOSCOPY 01/28/2016 - [facility] 1986 - [place] Current Outpatient Medications: MILK THISTLE ORAL Take 1 capsule by mouth once daily. FENUGREEK SEED EXTRACT ORAL Take 1 capsule by mouth once daily. BLACK COHOSH ORAL Take 1 tablet by mouth once daily. esomeprazole (NEXIUM) 20 mg capsule Take 20 mg by mouth once daily. [id number] NC ORAL Take 2 tablets by mouth once daily. cyanocobalamin, vitamin B-12, (VITAMIN B-12 ORAL) Take 1 tablet by mouth once daily. ALLERGIES: Patient has no known allergies. PERSONAL HISTORY: Social History Socioeconomic History Marital status: Smoking status: Never Smoker Smokeless tobacco: Never Used Substance and Sexual Activity Alcohol use: Never Drug use: Never FAMILY HISTORY - Cancer Mother uterine AND colon - Hyperlipidemia Father - Hypertension Father - Arthritis Father - No Known Problems Sister - Breast Cancer Maternal Grandmother - Hypertension Paternal Grandmother - No Known Problems Daughter - No Known Problems Daughter - No Known Problems Son - No Known Problems Son - No Known Problems Son REVIEW OF SYSTEMS: General: The patient NOTES fatigue, denies weight loss, denies weight gain, denies feeling hot, and NOTES feelings of cold. Eyes: The patient denies glaucoma, NOTES eye injury/surgery, wears glasses or contacts. Ear/Nose/Throat: The patient denies allergies, denies hayfever, denies ear infections, and denies bloody noses. Cardiovascular: The patient denies chest pain, denies heart disease, denies high blood pressure,denies cardiac stent, denies prior heart attack, denies irregular heart beat, denies high cholesterol, denies poor circulation, denies heart failure, other cardiac issues, NOTES claudication, NOTES cold feet, denies peripheral arterial stent. Respiratory: The patient denies tuberculosis, denies pneumonia, denies frequent cough, denies pulmonary embolism, denies shortness of breath, and denies coughing up blood. Gastrointestinal: The patient denies difficulty swallowing, NOTES acid reflux, denies ulcers, denies vomiting, denies jaundice/hepatitis, denies gallbladder problems, denies black or tarry stools, denies hemorrhoids, denies bleeding from rectum, denies diverticulitis, denies constipation, denies diarrhea, denies loss of stool control, and denies hernias. Kidney/Bladder: The patient NOTES kidney stones, denies urine infections, and denies bloody urine. Skin: The patient denies a history of skin cancer, denies bleeding/changing moles, and denies a history of skin rash. Neurologic: The patient denies a history of epilepsy/convulsions , denies headaches, denies head/spinal injuries, and denies stroke/TIA. Psychiatric: The patient denies psychiatric medications, denies depression, and denies voices, denies substance abuse. Endocrine: The patient denies thyroid disorders, NOTES diabetes, and denies hormonal problems. Hematologic: The patient denies a history of bruising, denies bleeding, and denies anemia, denies blood clots. Infections: The patient NOTES a history of measles and mumps, denies rheumatic fever, and denies sexually transmitted diseases. Musculoskeletal: The patient NOTES back pain/injury, denies back problems, denies sciatica, denies knee/foot trouble, NOTES arthritis, or denies gout. PHYSICAL EXAMINATION: General: The patient is 53 year old female, well nourished, well hydrated in no acute distress. The patient is oriented to time, place, and person. VITALS: Blood pressure 112/60, pulse 86, temperature 36.4 ?C (97.5 ?F), temperature source Temporal, resp. rate 16, height 155 cm (5' 1.02), weight 61.3 kg (135 lb 3.2 oz), SpO2 100 %. Body mass index is 25.53 kg/m?. Head ? Normocephalic. EOM intact with sclera clear and no icterus noted. Wearing glasses, Mouth with mucus membranes moist. Neck - supple with no jugular venous distention noted. Trachea is midline. Chest/breast ? prominent xiphoid process Lungs ? no labored breathing noted, such as retractions. No cough heard. Abdomen ? soft and benign Extremities ? no pitting edema noted. Skin ? normal skin integrity. Psych ? calm and appropriate IMPRESSION: epigastric abdominal pain PLAN: I have discussed the above with the patient. She has strong opinions as to the etiology of her abdominal pain and feels that with her relaxed position, she no longed has symptoms. She had questions about the HIDA scan reports and was concerned about the wording of activity in the gastric region suggesting duodenal gastric reflux and she was concerned about an abnormal connection between the stomach and the small intestine. I explained this to her. I have offered her further evaluation with EGD, based on her past complaints - she does not want this. She did not schedule for this in this patient encounter. I have offered her treatment with Carafate for bile gastritis - she will think about it. I have answered all questions to the patient?s satisfaction and the patient has no further questions. . Return to Clinic: The patient is instructed to follow-up with me per needed. Normal [facility] HEPATOBILIARY W EF AND/OR RXon 02-16-2019 [place] HEPATOBILIARY W EF AND/OR RX * * *Final Report* * * DATE OF EXAM: Feb 16 2019 9:42AM NIRAV [id number] - [place] HEPATOBILIARY W EF AND/OR RX / PROCEDURE REASON: Right upper quadrant pain * * * * Physician Interpretation * * * * HEPATOBILIARY SCAN WITH POST-CCK GALLBLADDER EJECTION FRACTION: CLINICAL HISTORY: Right upper quadrant pain TECHNIQUE: 5.8 mCi Tc-99m Choletec IV.followed by 60 minutes of abdominal imaging 1.2 mcg (CCK) IV, followed by additional 30 minutes of imaging. RESULT: There is prompt and relatively Homogeneous uptake by the liver. Gallbladder activity is visualized by 9 minutes, indicating cystic duct patency. Proximal small bowel activity is noted by 17 minutes, indicating common bile duct patency. There is activity in the gastric region suggesting duodenal gastric reflux. Gallbladder EF calculation is limited by motion. After CCK was administered there is satisfactory emptying from the gallbladder with a calculated gallbladder ejection fraction of 48% (normal > 35%). IMPRESSION: 1. Gallbladder is visualized. Patent cystic and common bile ducts. No scintigraphic evidence of acute cholecystitis. 2. Normal gallbladder ejection fraction. Collar Fuser: MENDY Transcribe Date/Time: Feb 16 2019 9:56A Dictated by : MASSIEL AMOS MD This examination was interpreted and the report reviewed and electronically signed by: MASSIEL AMOS MD on Feb 16 2019 10:35AM EST [id number] Normal [facility] PROGRESSon 02-16-2019 PROGRESS HNO ID: [id number] Author: Maribell Allen Service: ? Author Type: ? Type: Progress Notes Filed: 02/16/2019 9:20 AM Note Text: RADIOLOGY SERVICE PROGRESS NOTE SERVICE DATE: 02/16/2019 SERVICE TIME: 8:44 AM PATIENT IDENTITY VERIFICATION COMPLETED USING TWO (2) METHODS: Patient confirmed name and Date of verbally. PATIENT GENDER DATA: .female : No ALLERGIES: Reviewed and unchanged MEDICATIONS REVIEWED: Yes PATIENT RELEVANT IMPLANT DATA REVIEWED: Not Applicable CREATININE: No results found for: CREAT, EGFROTH, EGFRAA P.O.C.T. RESULTS: N/A February 16, [address] PERFORMED: No IV SITE: Ambulatory: A peripheral IV was started in the Right antecubital site with a Angio cath: 24 gauge. POST EXAM PIV STATUS: Discontinued PROCEDURE TYPE: NM INJECT: Hepatobiliary with Gallbladder EF. . 5.8 mCi Tc99m CHOLETEC. CCK 1.2 micrograms intravenous at 09:05 . ADMINISTRATION TIME: 07:55 PATIENT DISCHARGED TO: Ambulatory patient, left AL department area. A Diagnostic radioactive procedure has taken place, with no further precautions necessary other than routine body substance precautions. More information regarding radiation safety can be found using this link: [email or web address] SIGNATURE: Maribell Allen PATIENT NAME: Ratna Urbano DATE: February 16, 2019 TIME: 8:44 AM PAGER/CONTACT #: [facility] CNNURSEon 01-24-2019 CNNURSE Nurse Visit (CAWSTR) RATNA URBANO ([id number]) 1965 F Date Time Provider Department 01/24/19 10:00 AM [facility] During your visit today, we recorded the following information about you: César Thakkar Ma 01/24/2019 10:01 AM Signed 12 lead EKG performed on patient per physician order. Patient tolerated well with no signs of distress. César Thakkar Ma Referring Provider: LATISHA CLARKE [[id number]] Allergies As of Date: 01/24/2019 (No Known Allergies) Date Reviewed: 01/13/2019 Reviewed by: Latisha Clarke - Fully Assessed Reason for Visit: EKG [793] Visit Diagnosis:Substernal pain [R07.2] Order(s):ECG COMPLETE [ECG01] Order #: [id number] Prescriptions as of 01/24/2019 Sig: MILK THISTLE ORAL Take 1 capsule by mouth once * FENUGREEK SEED EXTRACT ORAL Take 1 capsule by mouth once * BLACK COHOSH ORAL Take 1 tablet by mouth once d* ESOMEPRAZOLE MAGNESIUM 20 MG * Take 20 mg by mouth once ghulam* [id number] NC ORAL Take 2 tablets by mouth once * VITAMIN B-12 ORAL Take 1 tablet by mouth once d* Problem List As Of Date: 01/24/2019 (None) Encounter Status:Closed by CÉSAR THAKKAR MA on 01/24/19 [facility] EKG1on 01-24-2019 EKG1 NAME : RATNA URBANO PID : [id number] : 1965 Gender : Female Race : ORD : Procedure Date : Jan 24 2019 09:51:05 Edit Date : Jan 25 2019 12:19:47 Diagnosis:NORMAL SINUS RHYTHM INCOMPLETE RIGHT BUNDLE BRANCH BLOCK BORDERLINE ECG NO PREVIOUS ECGS AVAILABLE Confirmed by SONAL JANE MD ([id number]) on 01/25/2019 12:19:44 PM Ventricular Rate : 67 BPM Atrial Rate : 67 BPM P-R Interval : 130 ms QRS Duration : 96 ms Q-T Interval : 398 ms QTC Calculation(Bezet) : 420 ms P Milton : 32 degrees R Milton : 72 degrees T Milton : 62 degrees Test Reason : Location : 136 : [place] Overread By : SONAL JANE MD Edited By : SONAL JANE MD Referred By : Yash JANE, Acquired by : Marino THAKKAR Normal [facility] PROGRESSon 01-24-2019 PROGRESS HNO ID: [id number] Author: César Thakkar Ma Service: ? Author Type: ? Type: Progress Notes Filed: 01/24/2019 10:01 AM Note Text: 12 lead EKG performed on patient per physician order. Patient tolerated well with no signs of distress. César Thakkar Ma Normal [facility] PROGRESSon 01-17-2019 PROGRESS HNO ID: [id number] Author: Lisa Herrera Rdms Service: ? Author Type: ? Type: Progress Notes Filed: 01/17/2019 3:07 PM Note Text: Radiology Service Progress Note PATIENT NAME: Ratna Urbano DATE OF SERVICE: January 17, 2019 TIME: 3:06 PM PATIENT IDENTITY VERIFICATION COMPLETED USING TWO (2) METHODS: Patient confirmed name verbally and Date of . PATIENT GENDER DATA: Female. status: : No status: NO. PATIENT RELEVANT IMPLANT DATA REVIEWED: Not Applicable RADIOLOGY DEPARTMENT: Ultrasound PERIPHERAL IV DATA: Not applicable SIGNED BY: Lisa Herrera Rdms January 17, 2019 3:06 PM Normal [facility] US ABD RIGHT UPPER QUADRANTo n 01-17-2019 US ABD RIGHT UPPER QUADRANT * * *Final Report* * * DATE OF EXAM: Jan 17 2019 3:09PM WRU [id number] - US ABD RIGHT UPPER QUADRANT / PROCEDURE REASON: Epigastric abdominal pain * * * * Physician Interpretation * * * * EXAMINATION: RIGHT UPPER QUADRANT ULTRASOUND CLINICAL HISTORY: Epigastric abdominal pain TECHNIQUE: Sonography of the right upper quadrant was performed. Images were obtained and stored in a permanent archive. MQ: [id number] COMPARISON: None. RESULT: Pancreas: Normal sonographic appearance. Portions obscured: tail Liver: Echotexture: Normal, homogeneous. Echogenicity: Normal Surface contour: Smooth Lesions: None. Biliary: No intrahepatic biliary duct dilation. CBD: 0.4 cm at the hilum. Gallbladder: Normal caliber -Contents: No cholelithiasis -Wall: Normal -Other: No pericholecystic fluid. Right Kidney: No hydronephrosis. Ascites: None. IMPRESSION: NORMAL SONOGRAPHIC APPEARANCE OF THE RIGHT UPPER QUADRANT. Collar Fuser: MENDY Transcribe Date/Time: Jan 17 2019 4:49P Dictated by : ANTONIO COSTA MD This examination was interpreted and the report reviewed and electronically signed by: ANTONIO COSTA MD on Jan 17 2019 4:49PM EST [id number] Normal [facility] CNOVon 01-13-2019 CNOV Office Visit (GENSWS) RATNA URBANO ([id number]) 1965 F Date Time Provider Department 01/13/19 2:30 PM LATISHA CLARKE During your visit today, we recorded the following information about you: Temperature Pulse Respiration Blood pressure 97.5 degrees 86/minute 16/minute 112/60 Weight Height 61.3 kg 1.55 m Monica Minaya RN 01/13/2019 2:50 PM Signed REVIEW OF SYSTEMS: General: The patient NOTES fatigue, denies weight loss, denies weight gain, denies feeling hot, and NOTES feelings of cold. Eyes: The patient denies glaucoma, NOTES eye injury/surgery, wears glasses or contacts. Ear/Nose/Throat: The patient denies allergies, denies hayfever, denies ear infections, and denies bloody noses. Cardiovascular: The patient denies chest pain, denies heart disease, denies high blood pressure,denies cardiac stent, denies prior heart attack, denies irregular heart beat, denies high cholesterol, denies poor circulation, denies heart failure, other cardiac issues, NOTES claudication, NOTES cold feet, denies peripheral arterial stent. Respiratory: The patient denies tuberculosis, denies pneumonia, denies frequent cough, denies pulmonary embolism, denies shortness of breath, and denies coughing up blood. Gastrointestinal: The patient denies difficulty swallowing, NOTES acid reflux, denies ulcers, denies vomiting, denies jaundice/hepatitis, denies gallbladder problems, denies black or tarry stools, denies hemorrhoids, denies bleeding from rectum, denies diverticulitis, denies constipation, denies diarrhea, denies loss of stool control, and denies hernias. Kidney/Bladder: The patient NOTES kidney stones, denies urine infections, and denies bloody urine. Skin: The patient denies a history of skin cancer, denies bleeding/changing moles, and denies a history of skin rash. Neurologic: The patient denies a history of epilepsy/convulsions , denies headaches, denies head/spinal injuries, and denies stroke/TIA. Psychiatric: The patient denies psychiatric medications, denies depression, and denies voices, denies substance abuse. Endocrine: The patient denies thyroid disorders, NOTES diabetes, and denies hormonal problems. Hematologic: The patient denies a history of bruising, denies bleeding, and denies anemia, denies blood clots. Infections: The patient NOTES a history of measles and mumps, denies rheumatic fever, and denies sexually transmitted diseases. Musculoskeletal: The patient NOTES back pain/injury, denies back problems, denies sciatica, denies knee/foot trouble, NOTES arthritis, or denies gout. When was patient's last Mammogram screening? 10/05 Last Colonoscopy: 02/01 Monica Clarke MD 01/16/2019 10:51 PM Signed Ratna Urbano 1965 REFERRING PHYSICIAN: Obie Sanchez DO CHIEF COMPLAINT: Consult (EGD) HPI: The patient is a 53 year old female presents with epigastric abdominal pain which radiates to upper abdomen and chest. Most recently the pain has been shooting straight through to the back. Also notes substernal pain - describes it as a pressure pain. Noted in the past several weeks. Has had epigastric discomfort for years, but the pain worsening over the past two months. Pain is intermittant and sharp in the epigastrium. Not related to activities or meals. Denies fevers. Denies constipation or diarrhea. Feels a lump of the lower sternum, was told that this was a prominent xiphoid process. Denies emesis, has some nausea. Denies nocturnal cough, denies regurgitation of food, denies swallowing problems, denies acid reflux. Had colonoscopy in January 2016 - ok. No gallbladder disease in family. Denies weight loss, denies change sin appetite. Has tried lansoprazole with no changes in symptoms PAST MEDICAL HISTORY Diagnosis Date - Diabetes (HCC) - Kidney stone - Over weight PAST SURGICAL HISTORY Procedure Laterality Date - COLONOSCOPY 01/28/2016 - [facility] - [place] Current Outpatient Medications: MILK THISTLE ORAL Take 1 capsule by mouth once daily. FENUGREEK SEED EXTRACT ORAL Take 1 capsule by mouth once daily. BLACK COHOSH ORAL Take 1 tablet by mouth once daily. esomeprazole (NEXIUM) 20 mg capsule Take 20 mg by mouth once daily. [id number] NC ORAL Take 2 tablets by mouth once daily. cyanocobalamin, vitamin B-12, (VITAMIN B-12 ORAL) Take 1 tablet by mouth once daily. ALLERGIES: Patient has no known allergies. PERSONAL HISTORY: Social History Socioeconomic History Marital status: Spouse name: Not on file Number of children: Not on file Years of education: Not on file Highest education level: Not on file Social Needs Financial resource strain: Not on file Food insecurity - worry: Not on file Food insecurity - inability: Not on file Transportation needs - medical: Not on file Transportation needs - non-medical: Not on file Occupational History Not on file Tobacco Use Smoking status: Never Smoker Smokeless tobacco: Never Used Substance and Sexual Activity Alcohol use: Never Frequency: Never Drug use: Never Sexual activity: Not on file Other Topics Concerns: Not on file Social History Narrative Not on file FAMILY HISTORY Problem Relation Age of Onset - Cancer Mother uterine AND colon - Hyperlipidemia Father - Hypertension Father - Arthritis Father - No Known Problems Sister - Breast Cancer Maternal Grandmother - Hypertension Paternal Grandmother - No Known Problems Daughter - No Known Problems Daughter - No Known Problems Son - No Known Problems Son - No Known Problems Son REVIEW OF SYSTEMS: General: The patient NOTES fatigue, denies weight loss, denies weight gain, denies feeling hot, and NOTES feelings of cold. Eyes: The patient denies glaucoma, NOTES eye injury/surgery, wears glasses or contacts. Ear/Nose/Throat: The patient denies allergies, denies hayfever, denies ear infections, and denies bloody noses. Cardiovascular: The patient denies chest pain, denies heart disease, denies high blood pressure,denies cardiac stent, denies prior heart attack, denies irregular heart beat, denies high cholesterol, denies poor circulation, denies heart failure, other cardiac issues, NOTES claudication, NOTES cold feet, denies peripheral arterial stent. Respiratory: The patient denies tuberculosis, denies pneumonia, denies frequent cough, denies pulmonary embolism, denies shortness of breath, and denies coughing up blood. Gastrointestinal: The patient denies difficulty swallowing, NOTES acid reflux, denies ulcers, denies vomiting, denies jaundice/hepatitis, denies gallbladder problems, denies black or tarry stools, denies hemorrhoids, denies bleeding from rectum, denies diverticulitis, denies constipation, denies diarrhea, denies loss of stool control, and denies hernias. Kidney/Bladder: The patient NOTES kidney stones, denies urine infections, and denies bloody urine. Skin: The patient denies a history of skin cancer, denies bleeding/changing moles, and denies a history of skin rash. Neurologic: The patient denies a history of epilepsy/convulsions , denies headaches, denies head/spinal injuries, and denies stroke/TIA. Psychiatric: The patient denies psychiatric medications, denies depression, and denies voices, denies substance abuse. Endocrine: The patient denies thyroid disorders, NOTES diabetes, and denies hormonal problems. Hematologic: The patient denies a history of bruising, denies bleeding, and denies anemia, denies blood clots. Infections: The patient NOTES a history of measles and mumps, denies rheumatic fever, and denies sexually transmitted diseases. Musculoskeletal: The patient NOTES back pain/injury, denies back problems, denies sciatica, denies knee/foot trouble, NOTES arthritis, or denies gout. PHYSICAL EXAMINATION: General: The patient is 53 year old female, well nourished, well hydrated in no acute distress. The patient is oriented to time, place, and person. VITALS: Blood pressure 112/60, pulse 86, temperature 36.4 ?C (97.5 ?F), temperature source Temporal, resp. rate 16, height 155 cm (5' 1.02), weight 61.3 kg (135 lb 3.2 oz), SpO2 100 %. Body mass index is 25.53 kg/m?. Head ? Normocephalic. EOM intact with sclera clear and no icterus noted. Wearing glasses Mouth with mucus membranes moist. Neck - supple with no jugular venous distention noted. Trachea is midline. No carotid bruits noted. No thyroid enlargement or thyroid nodules detected. No masses noted. Chest/breast ? prominent xiphoid process Lungs ? clear to auscultation. Inspiration upon command. Normal breath sounds in all lung escalante. No rales/rhonchi/wheezi ng noted. No labored breathing noted, such as retractions. No cough heard. Heart ? normal S1 and S2 auscultated. No rubs/clicks/murmurs noted. Regular rate. Normal size and location by auscultation. Abdomen ? soft and benign, tender in the epigastrium but no peritoneal signs noted. Normal bowel sounds. No abdominal bruits noted. Extremities ? no calf tenderness noted. No pitting edema noted. Skin ? normal skin integrity. Neurological ? gait normal, no focal deficits noted Psych ? calm and appropriate Assessment IMPRESSION: epigastric abdominal pain PLAN: I have discussed the above with the patient and her who is present with her. She complains of substernal pain and I am concerned about possible cardiac etiology, the patient states that she has not had an EKG in the past. With regard to her abdominal pain, I will order an US of right upper quadrant I will call patient with results, depending upon the findings, the patient may need to set up for further testing. The patient wishes to proceed. I have answered all questions to the patient?s satisfaction and the patient has no further questions. . Diagnoses: (R07.2) Substernal pain (primary encounter diagnosis) (R10.13) Epigastric abdominal pain Return to Clinic: The patient is instructed to follow-up with me as above. Latisha Clarke MD Referring Provider: OBIE SANCHEZ [[id number]] Allergies As of Date: 01/13/2019 (No Known Allergies) Date Reviewed: 01/13/2019 Reviewed by: Latisha Clarke - Fully Assessed Reason for Visit: Consult [173] Cmt: EGD Primary Visit Diagnosis:Substernal pain [R07.2] Other Visit Diagnosis:Epigastric abdominal pain [R10.13] Order(s):US ABD RT UPPER QUADRANT [[id number]] Order #: [id number] FUTURE ECG COMPLETE [ECG01] Order #: [id number] FUTURE Prescriptions as of 01/13/2019 Sig: MILK THISTLE ORAL Take 1 capsule by mouth once * FENUGREEK SEED EXTRACT ORAL Take 1 capsule by mouth once * BLACK COHOSH ORAL Take 1 tablet by mouth once d* ESOMEPRAZOLE MAGNESIUM 20 MG * Take 20 mg by mouth once ghulam* [id number] NC ORAL Take 2 tablets by mouth once * VITAMIN B-12 ORAL Take 1 tablet by mouth once d* Problem List As Of Date: 01/13/2019 (None) Visit Notes: >> Monica Minaya RN Dy[place] Jan 13, 2019 2:45 PM Status: Signed REVIEW OF SYSTEMS: General: The patient NOTES fatigue, denies weight loss, denies weight gain, denies feeling hot, and NOTES feelings of cold. Eyes: The patient denies glaucoma, NOTES eye injury/surgery, wears glasses or contacts. Ear/Nose/Throat: The patient denies allergies, denies hayfever, denies ear infections, and denies bloody noses. Cardiovascular: The patient denies chest pain, denies heart disease, denies high blood pressure,denies cardiac stent, denies prior heart attack, denies irregular heart beat, denies high cholesterol, denies poor circulation, denies heart failure, other cardiac issues, NOTES claudication, NOTES cold feet, denies peripheral arterial stent. Respiratory: The patient denies tuberculosis, denies pneumonia, denies frequent cough, denies pulmonary embolism, denies shortness of breath, and denies coughing up blood. Gastrointestinal: The patient denies difficulty swallowing, NOTES acid reflux, denies ulcers, denies vomiting, denies jaundice/hepatitis, denies gallbladder problems, denies black or tarry stools, denies hemorrhoids, denies bleeding from rectum, denies diverticulitis, denies constipation, denies diarrhea, denies loss of stool control, and denies hernias. Kidney/Bladder: The patient NOTES kidney stones, denies urine infections, and denies bloody urine. Skin: The patient denies a history of skin cancer, denies bleeding/changing moles, and denies a history of skin rash. Neurologic: The patient denies a history of epilepsy/convulsions , denies headaches, denies head/spinal injuries, and denies stroke/TIA. Psychiatric: The patient denies psychiatric medications, denies depression, and denies voices, denies substance abuse. Endocrine: The patient denies thyroid disorders, NOTES diabetes, and denies hormonal problems. Hematologic: The patient denies a history of bruising, denies bleeding, and denies anemia, denies blood clots. Infections: The patient NOTES a history of measles and mumps, denies rheumatic fever, and denies sexually transmitted diseases. Musculoskeletal: The patient NOTES back pain/injury, denies back problems, denies sciatica, denies knee/foot trouble, NOTES arthritis, or denies gout. When was patient's last Mammogram screening? 10/05 Last Colonoscopy: 02/01 Monica Minaya RN Letter Text Encounter Status:Closed by MD LATISHA CLARKE on 01/16/19 [facility] PROGRESSon 01-13-2019 PROGRESS HNO ID: [id number] Author: Latisha Clarke Service: ? Author Type: Physician Type: Progress Notes Filed: 01/16/2019 10:51 PM Note Text: Ratna Urbano 1965 REFERRING PHYSICIAN: Obie Sanchez DO CHIEF COMPLAINT: Consult (EGD) HPI: The patient is a 53 year old female presents with epigastric abdominal pain which radiates to upper abdomen and chest. Most recently the pain has been shooting straight through to the back. Also notes substernal pain - describes it as a pressure pain. Noted in the past several weeks. Has had epigastric discomfort for years, but the pain worsening over the past two months. Pain is intermittant and sharp in the epigastrium. Not related to activities or meals. Denies fevers. Denies constipation or diarrhea. Feels a lump of the lower sternum, was told that this was a prominent xiphoid process. Denies emesis, has some nausea. Denies nocturnal cough, denies regurgitation of food, denies swallowing problems, denies acid reflux. Had colonoscopy in January 2016 - ok. No gallbladder disease in family. Denies weight loss, denies change sin appetite. Has tried lansoprazole with no changes in symptoms PAST MEDICAL HISTORY Diagnosis Date - Diabetes (HCC) - Kidney stone - Over weight PAST SURGICAL HISTORY Procedure Laterality Date - COLONOSCOPY 01/28/2016 - [facility] 1987 - [place] Current Outpatient Medications: MILK THISTLE ORAL Take 1 capsule by mouth once daily. FENUGREEK SEED EXTRACT ORAL Take 1 capsule by mouth once daily. BLACK COHOSH ORAL Take 1 tablet by mouth once daily. esomeprazole (NEXIUM) 20 mg capsule Take 20 mg by mouth once daily. [id number]-[id number]-CD NC ORAL Take 2 tablets by mouth once daily. cyanocobalamin, vitamin B-12, (VITAMIN B-12 ORAL) Take 1 tablet by mouth once daily. ALLERGIES: Patient has no known allergies. PERSONAL HISTORY: Social History Socioeconomic History Marital status: Spouse name: Not on file Number of children: Not on file Years of education: Not on file Highest education level: Not on file Social Needs Financial resource strain: Not on file Food insecurity - worry: Not on file Food insecurity - inability: Not on file Transportation needs - medical: Not on file Transportation needs - non-medical: Not on file Occupational History Not on file Tobacco Use Smoking status: Never Smoker Smokeless tobacco: Never Used Substance and Sexual Activity Alcohol use: Never Frequency: Never Drug use: Never Sexual activity: Not on file Other Topics Concerns: Not on file Social History Narrative Not on file FAMILY HISTORY Problem Relation Age of Onset - Cancer Mother uterine AND colon - Hyperlipidemia Father - Hypertension Father - Arthritis Father - No Known Problems Sister - Breast Cancer Maternal Grandmother - Hypertension Paternal Grandmother - No Known Problems Daughter - No Known Problems Daughter - No Known Problems Son - No Known Problems Son - No Known Problems Son REVIEW OF SYSTEMS: General: The patient NOTES fatigue, denies weight loss, denies weight gain, denies feeling hot, and NOTES feelings of cold. Eyes: The patient denies glaucoma, NOTES eye injury/surgery, wears glasses or contacts. Ear/Nose/Throat: The patient denies allergies, denies hayfever, denies ear infections, and denies bloody noses. Cardiovascular: The patient denies chest pain, denies heart disease, denies high blood pressure,denies cardiac stent, denies prior heart attack, denies irregular heart beat, denies high cholesterol, denies poor circulation, denies heart failure, other cardiac issues, NOTES claudication, NOTES cold feet, denies peripheral arterial stent. Respiratory: The patient denies tuberculosis, denies pneumonia, denies frequent cough, denies pulmonary embolism, denies shortness of breath, and denies coughing up blood. Gastrointestinal: The patient denies difficulty swallowing, NOTES acid reflux, denies ulcers, denies vomiting, denies jaundice/hepatitis, denies gallbladder problems, denies black or tarry stools, denies hemorrhoids, denies bleeding from rectum, denies diverticulitis, denies constipation, denies diarrhea, denies loss of stool control, and denies hernias. Kidney/Bladder: The patient NOTES kidney stones, denies urine infections, and denies bloody urine. Skin: The patient denies a history of skin cancer, denies bleeding/changing moles, and denies a history of skin rash. Neurologic: The patient denies a history of epilepsy/convulsions , denies headaches, denies head/spinal injuries, and denies stroke/TIA. Psychiatric: The patient denies psychiatric medications, denies depression, and denies voices, denies substance abuse. Endocrine: The patient denies thyroid disorders, NOTES diabetes, and denies hormonal problems. Hematologic: The patient denies a history of bruising, denies bleeding, and denies anemia, denies blood clots. Infections: The patient NOTES a history of measles and mumps, denies rheumatic fever, and denies sexually transmitted diseases. Musculoskeletal: The patient NOTES back pain/injury, denies back problems, denies sciatica, denies knee/foot trouble, NOTES arthritis, or denies gout. PHYSICAL EXAMINATION: General: The patient is 53 year old female, well nourished, well hydrated in no acute distress. The patient is oriented to time, place, and person. VITALS: Blood pressure 112/60, pulse 86, temperature 36.4 ?C (97.5 ?F), temperature source Temporal, resp. rate 16, height 155 cm (5' 1.02), weight 61.3 kg (135 lb 3.2 oz), SpO2 100 %. Body mass index is 25.53 kg/m?. Head ? Normocephalic. EOM intact with sclera clear and no icterus noted. Wearing glasses Mouth with mucus membranes moist. Neck - supple with no jugular venous distention noted. Trachea is midline. No carotid bruits noted. No thyroid enlargement or thyroid nodules detected. No masses noted. Chest/breast ? prominent xiphoid process Lungs ? clear to auscultation. Inspiration upon command. Normal breath sounds in all lung escalante. No rales/rhonchi/wheezi ng noted. No labored breathing noted, such as retractions. No cough heard. Heart ? normal S1 and S2 auscultated. No rubs/clicks/murmurs noted. Regular rate. Normal size and location by auscultation. Abdomen ? soft and benign, tender in the epigastrium but no peritoneal signs noted. Normal bowel sounds. No abdominal bruits noted. Extremities ? no calf tenderness noted. No pitting edema noted. Skin ? normal skin integrity. Neurological ? gait normal, no focal deficits noted Psych ? calm and appropriate Assessment IMPRESSION: epigastric abdominal pain PLAN: I have discussed the above with the patient and her who is present with her. She complains of substernal pain and I am concerned about possible cardiac etiology, the patient states that she has not had an EKG in the past. With regard to her abdominal pain, I will order an US of right upper quadrant I will call patient with results, depending upon the findings, the patient may need to set up for further testing. The patient wishes to proceed. I have answered all questions to the patient?s satisfaction and the patient has no further questions. . Diagnoses: (R07.2) Substernal pain (primary encounter diagnosis) (R10.13) Epigastric abdominal pain Return to Clinic: The patient is instructed to follow-up with me as above. Latisha Clarke MD [facility] 01-11-2019 MICHELLE Telephone ([employer] Computer) RATNA URBANO ([id number]) 1965 F Date Time Provider Department 01/11/19 LATISHA CLARKE During your visit today, we recorded the following information about you: Viki Napoleselmer [facility] 01/11/2019 9:54 AM Signed Left for patient to call back to schedule EGD consult with Dr Toby costa.Viki Napoleselmer [facility] Nir Clements [facility] 01/11/2019 12:32 PM Signed Patient is scheduled with Dr Clarke for 12/16/18 Allergies As of Date: 01/11/2019 (Not on File) Date Reviewed: Never Reviewed Reason for Visit: LMTCB [1226] Problem List As Of Date: 01/11/2019 (None) Encounter Status:Closed by VIKI WELLS on 01/11/19 Normal [facility] CNCOon 09-20-2018 CNCO HNO ID: [id number] Author: Mammography Coordinator Service: (none) Author Type: Physician Type: Letter Filed: 09/21/2018 11:32 PM Note Text: September 20, 2018 PID: [id number] Ratna Urbano [address] [place] [address] Dear Ms. Urbano, We are pleased to inform you that the results of your recent breast imaging exam on 09/20/2018 are normal. Early detection of cancer is very important. We also understand recommendations regarding breast cancer screening are controversial. Please discuss with your primary care provider which strategy is best for you and whether a mammogram is right for you. Your imaging studies and report will be kept on file at [facility] as part of your permanent medical record and are available for your continuing care. Thank you for allowing us to help in meeting your health care needs. Sincerely, Dr. Pandya Interpreting Radiologist [facility] (Normal over 40) Normal [facility] SCREENINGon 09-20-2018 MARY SCREENING * * *Final Report* * * DATE OF EXAM: Sep 20 2018 11:47AM [id number] - [facility] SCREENING / PROCEDURE REASON: screening * * * * Physician Interpretation * * * * RESULT: #[id number] - MARY SCREENING BILATERAL DIGITAL SCREENING MAMMOGRAM WITH CAD: 09/20/2018 HISTORY: Screening /patient reports NO breast symptoms /priors available for comparison. RESULT: TECHNIQUE: The study was acquired using full field digital technology and interpreted from soft copy. Current study was also evaluated with a Computer Aided Detection (CAD). Comparison is made to exams dated: 09/18/2017 mammogram and 06/21/2013 mammogram - [facility]. There are scattered fibroglandular elements in both breasts. No significant masses, calcifications, or other findings are seen in either breast. There has been no significant interval change. IMPRESSION: There is no mammographic evidence of malignancy. A 1 year screening mammogram is recommended. 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 With representation from Breast Imaging, Internal Medicine, Women's Health, Family Medicine, and Medical/Surgical Oncology, the [facility] has carefully reviewed the data and reached the following consensus: 1) All women should engage in shared decision-making with their providers to decide when to start and how often to screen; 2) All women should have the opportunity to start screening mammography at age 40; 3) For women ages 45-55, we recommend annual screening mammograms; 4) For women ages 55 and over, we support both the transition from an annual to a biennial interval if this aligns more with patient's values and preferences, or continuation with annual screening; 5) All women should discuss with their providers when to stop screening mammograms. Collar Fuser: Ridge Transcribe Date/Time: Sep 20 2018 11:48A Dictated by: HUMZA PANDYA MD This examination was interpreted and the report reviewed and electronically signed by: HUMZA PANDYA MD on Sep 20 2018 1:10PM EST [id number] Normal [facility] PROGRESSon 09-20-2018 PROGRESS HNO ID: [id number] Author: Isela Márquez Rt Service: (none) Author Type: (none) Type: Progress Notes Filed: 09/20/2018 11:50 AM Note Text: Radiology Service Progress Note PATIENT NAME: Ratna Urbano DATE OF SERVICE: September 20, 2018 TIME: 11:39 AM PATIENT IDENTITY VERIFICATION COMPLETED USING TWO (2) METHODS: Patient confirmed name verbally and Date of . PATIENT GENDER DATA: Female. status: : No status: NO. PATIENT RELEVANT IMPLANT DATA REVIEWED: Not Applicable RADIOLOGY DEPARTMENT: [facility] mammogram PERIPHERAL IV DATA: Not applicable SIGNED BY: Isela Márquez Rt September 20, 2018 11:39 AM Normal [facility] Vital Signs Date Time Vital Sign Value Performing Clinician Faci patrice 04-08-2023 10:24-0400 Body height 154.[address] Bernadine Vega Work Phone: [facility] 04-08-2023 10:24-0400 Body mass index (BMI) [Ratio] 29.3 kg/m2 Dr. Bernadine Vega Work Phone: [facility] 04-08-2023 10:24-0400 Body temperature 96.6 [degF] Dr. Bernadine Vega Work Phone: [facility] 04-08-2023 10:24-0400 Body weight 70.[address] Bernadine Vega Work Phone: [facility] 04-08-2023 10:24-0400 Diastolic blood pressure 88 mm[Hg] Dr. Bernadine Vega Work Phone: [facility] 04-08-2023 10:24-0400 Heart rate 75 /min Dr. Bernadine Vega Work Phone: [facility] 04-08-2023 10:24-0400 Respiratory rate 18 /min Dr. Bernadine Vega Work Phone: [facility] 04-08-2023 10:24-0400 SaO2% (BldA) [Mass fraction] 96 % Dr. Bernadine Vega Work Phone: [facility] 04-08-2023 10:24-0400 Systolic blood pressure 118 mm[Hg] Dr. Bernadine Vega Work Phone: [facility] 02-17-2022 08:03-0400 Body height 154.94 cm [facility] Work Phone: 02-17-2022 08:03-0400 Body mass index (BMI) [Ratio] 31.9 kg/m2 [facility] Work Phone: 02-17-2022 08:03-0400 Body temperature 97 [degF] [facility] Work Phone: 02-17-2022 08:03-0400 Body weight 76.65 kg [facility] Work Phone: 02-17-2022 08:03-0400 Diastolic blood pressure 80 mm[Hg] [facility] Work Phone: 02-17-2022 08:03-0400 Heart rate 65 /min [facility] Work Phone: 02-17-2022 08:03-0400 Respiratory rate 16 /min [facility] Work Phone: 02-17-2022 08:03-0400 SaO2% (BldA) [Mass fraction] 98 % [facility] Work Phone: 02-17-2022 08:03-0400 Systolic blood pressure 138 mm[Hg] [facility] Work Phone: Encounters Encounter Date Encounter Type Care Provider Facility Start: [facility]09[facility] Start: 02-15-2025 End: 02-15-2025 [facility] [place] [place] Start: 11-14-2024 End: 11-14-2024 ambulatory emelynunionkortney Vega [place] [place] Start: 09-06-2024 Encounter for genera l adult medical examination without abnormal findings [facility] Jose[facility]i [facility] Start: 08-15-2024 End: 08-15-2024 ambulatory [facility] Facility[place] [place] Start: 08-15-2024 End: 08-15-2024 ambulatory [facility] Facility:[facility] Start: 04-08-[address] Javi Vega Work Phone: [facility] Start: 04-08-2023 End: 04-08-2023 Encounter for general adult medical examination without abnormal findings Dr. Bernadine Vega Work Phone: [facility] Start: 04-08-2023 End: 04-08-[address] Bernadine Vega Work Phone: [facility] Start: 04-06-2023 End: 04-06-[address] Bernadine Vega Work Phone: [facility] Work Phone: Start: 04-06-2023 End: 04-06-[address] Bernadine Vega Work Phone: [facility] Start: 02-17-2022 Patient encounter status Love mata [facility] Start: 02-17-2022 End: 02-17-2022 Encounter for general adult medical examination without abnormal findings Love Vee [facility] Start: 02-17-2022 End: 02-17-2022 Patient encounter procedure Love Vee [facility] Start: 02-14-2022 Non-patient / Non-visit Love javier [facility] Plan of Treatment Date Care Activity Detail Author MG Breast - bilateral Screening [facility] Payers Date Payer Category Payer Self-pay [id number] 2024 Unknown [id number] Unknown [id number] [id number] Unknown [id number] [id number] [id number] Unknown [id number] [id number] [id number] Unknown [id number] [id number] [id number] Unknown [id number] [id number] [id number] Social History Date Type Detail Facility Start: 02-17-2022 End: 04-08-2023 Tobacco smoking status NHIS Unknown if ever smoked [facility] Start: 10-24-2013 None [facility] Start: 10-24-2013 Spouse/ Signif icant Other [facility] Start: 1965 Sex Assigned At Female W [facility] Evaluation note Note Date & Type Note Facility Evaluation note Diagnosis Onset Date Preventative health care acu te [facility] Work Phone: Evaluation note Note Date & Type Note Facility Evaluation note Diagnosis Onset Date Cerumen impaction acute Health care maintenance acut e Hyperlipemia chronic Type 2 diabetes mellitus chr onic [facility] Work Phone: Summary Purpose Family History No Family History Records Found Relationship Condition Age at Onset Recorded Date/T alivia mother Malignant neoplasm Unknown Malignant neoplasm of colon Unknown father Arthritis Unknown Hypertension Unknown Hyperlipidemia Unknown aunt Diabetes mellitus Unknown Advance Directives No Advanced Directives Records Found Advance Directive Response Recorded Date/ Time Advance Directives No January 27 016 9:33am Living Will No June 18 7 5:03am Power of Lens Grinder Rough No June 18 017 5:03am Chief Complaint and Reason for Visit 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, 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 Reason for Visit Preventative health care Chief Complaint 6 M FU Reason for Visit Cerumen impaction Health care maintenance Hyperlipemia Type 2 diabetes mellitus Additional Source Comments INFORMATION SOURCE (unrecogn ized section and content) DATE CREATED AUTHOR 07/02/2019 [facility] DATE CREATED AUTHOR AUTHOR'S ORGANIZ ATION 08/31/2020 [facility] ([place]) DATE CREATED AUTHOR AUTHOR'S ORGANIZ ATION 05/08/2025 [facility] Goals (unrecognized section and content) Goals may be documented in a n alternate sectionGoals may be documented in an alternate section Care Teams (unrecognized sec tion and content) Team Status: Active Member Role Status Dates Dr. Obie Sanchez DO Family Provider Active Dr. Bernadine Vega MD Primary Care Provider Active Team Status: Inactive Member Role Status Dates Dr. Bernadine Vega MD Primary Care P moo, Attending Provider, Referring Provider Active FOR RECORDS PERTAINING TO PATIENTS WHO ARE OR HAVE BEEN ENROLLED IN A CHEMICAL DEPENDENCY/SUBSTANCEABUSE PROGRAM, SOME INFORMATION MAY BE OMITTED. This clinical summary was aggregated from multiple sources. Caution should be exercised in using it in the provision of clinical care. This summary normalizes information from multiple sources, and as a consequence, information in this document may materially change the coding, format and clinical context of patient data. In addition, data may be omitted in some cases. CLINICAL DECISIONS SHOULD BE BASED ON THE PRIMARY CLINICAL RECORDS. [employer] [facility]. provides no warranty or guarantee of the accuracy or completeness of information in this document.
--- NOTE | 2025-05-09 07:02 | BD_ITS ---
PROCEDURE: DEXA BONE DENSITY STUDY 05/09/2025 REASON FOR EXAM: POST MENOPAUSAL F, age 59 y/o . TECHNIQUE: DEXA BONE DENSITY STUDY COMPARISON: None FINDINGS: BMD and T-SCORES Lumbar spine: 0.886 g/cm2, T-score -1.5 Levels: L1 through L4 Left femoral neck: 0.663 g/cm2, T-score -1.7 Femoral neck comparison data not recommended for monitoring change. Left total hip: 0.761 g/cm2, T-score -1.5 Right femoral neck: 0.684 g/cm2, T-score -1.5 Femoral neck comparison data not recommended for monitoring change. Right total hip: 0.791 g/cm2, T-score -1.2 The World Health Organization has defined the following categories based on bone density: Normal bone density: T-score equal to or greater than -1.0 Osteopenia: T-score between -1.0 and -2.5 Osteoporosis: T-score equal to or less than -2.5 FRAX (or Comparable) Fracture Risk Assessment: 10 Year Probability of Fracture: Major Osteoporotic Fracture: 14% Hip Fracture: 1.3% (Note: FRAX is not to be reported in setting of normal range bone density, osteoporosis on DEXA, known history of osteoporosis, prior osteoporotic hip or vertebral fracture, or for any patient undergoing pharmacological treatment for bone loss.) The National Osteoporosis Foundation (NOF) recommends pharmacological treatment for patients with a FRAX 10-year risk of 3% or higher for a hip fracture, or 20% or higher for a major osteoporotic fracture, to prevent osteoporosis and reduce fracture risk. The patient does not meet the pharmacological treatment recommendations for prevention of osteoporosis. BD/Dexa Bone Density Study IMPRESSION: OSTEOPENIA. Reading Location: [id number]
== END | disposition home or self-care (01) ==
PROVIDERS: PCP Internal Medicine; Referring Provider Internal Medicine; Visit Provider Internal Medicine
DX: Z12.31 Encounter for screening mammogram for malignant neoplasm of breast (principal); Z78.0 Asymptomatic menopausal state; M85.80 Other specified disorders of bone density and structure, unspecified site
CPT/HCPCS: 77063; 77067; 77080

== ENCOUNTER → 2025-06-26 | Outpatient (CLI) | payer BC, SELFPAY ==
[2025-06-26 15:09] LABS: Hematocrit 38.1 % (37-47); Hemoglobin 13.2 g/dL (12.0-15.0); Immature Granulocytes Count 0.020 X10^3/uL (0.0-0.0); Mean Corp Hgb Conc 34.6 g/dL (32-36); Mean Corpuscular Volume 91.4 fL (81-99); Mean Platelet Vol. 9.0 fl (6.2-12.0); NRBC Flagged by Analyzer 0 % (0-5); Platelet Count 371 K/mm3 (150-450); RBC Distribution Width CV 12.3 % (11.6-14.6); RBC Distribution Width SD 40.8 fl (35.1-43.9); Red Blood Count 4.17 M/mm3 (4.2-5.4); White Blood Count 7.9 K/mm3 (4.4-11.0)
[2025-06-26 15:57] LABS: AST(SGOT) 22 U/L (<=31); Alanine Aminotransfer ALT/SGPT 18 U/L (<=34); Albumin, Serum 4.3 g/dL (3.4-4.8); Alkaline Phosphatase 89 U/L (35-104); Anion Gap 11 (5-15); BUN 13 mg/dL (4-19); BUN/Creat Ratio 19.6 RATIO (10-20); Calcium,Total 9.8 mg/dL (7.6-11.0); Carbon Dioxide 23.9 mmol/L (21.0-32.0); Chloride 104 mmol/L (98-108); Cholesterol 197 mg/dL (<=200); Globulin 3.2 g/dL (2.2-4.2); Glucose 98 mg/dL (70-99); Low Density Lipoprotein Calc. 98 mg/dL; Potassium 4.3 mmol/L (3.3-5.1); Triglycerides 183 mg/dL; Very Low Density Lipoprotein 37 mg/dL (5-40); Vitamin D,25 Hydroxy 27.1 ng/mL (30-100); cholesterol:hdl ratio screen 3.14
== END | disposition home or self-care (01) ==
LOC: BIMLAB 12:14
PROVIDERS: PCP Internal Medicine; Referring Provider Internal Medicine; Visit Provider Internal Medicine
DX: Z00.00 Encounter for general adult medical examination without abnormal findings (principal); E11.9 Type 2 diabetes mellitus without complications; M85.80 Other specified disorders of bone density and structure, unspecified site
CPT/HCPCS: 36415; 80053; 80061; 82306; 83036; 85025